=== PATIENT | female | born 1995 | race Caucasian/White ===

== ENCOUNTER 2018-06-20 21:54 | Emergency (ER) | payer OTHER, MEDICAID, SELFPAY ==
[2018-06-20 22:14] VITALS: BP 124/75; PULSE 91; RESP 20; TEMP 36.6; O2SAT 100; BMI 40.6
--- NOTE | 2018-06-20 22:21 | DI.RAD.S_ITS ---
PROCEDURE: XR WRIST LT MIN 3V INDICATIONS: glf, left wrist and forearm pain with numbness in fingers TECHNIQUE: 4 views of the wrist were acquired. COMPARISON: None. FINDINGS: Bones: No fractures or dislocations. No suspicious bony lesions. Scaphoid view: Scaphoid is intact. Soft tissues: No suspicious soft tissue calcifications. IMPRESSION: No fracture. No osseous lesion. If symptoms and/or clinical suspicion for pathology persists, further assessment with repeat radiographs (7-10 days) or advanced imaging (e.g. CT, MRI or bone scan) may be helpful. Dictated by: Cristy Guadalupe MD, PhD on 06/21/2018 at 7:44 Approved by: Cristy Guadalupe MD, PhD on 06/21/2018 at 7:44
--- NOTE | 2018-06-20 22:22 | DI.RAD.S_ITS ---
PROCEDURE: XR FOREARM RT 2V INDICATIONS: glf, left wrist and forearm pain. numbness in fingers. TECHNIQUE: 2 views of the forearm were acquired. COMPARISON: None. FINDINGS: Bones: No fractures or dislocations. No suspicious bony lesions. Soft tissues: No suspicious soft tissue calcifications or masses. IMPRESSION: No fracture. No osseous lesion. If symptoms and/or clinical suspicion for pathology persists, further assessment with repeat radiographs (7-10 days) or advanced imaging (e.g. CT, MRI or bone scan) may be helpful. Dictated by: Cristy Guadalupe MD, PhD on 06/21/2018 at 7:42 Approved by: Cristy Guadalupe MD, PhD on 06/21/2018 at 7:43
[2018-06-20 23:36] VITALS: PULSE 90; RESP 16; TEMP 36.4; O2SAT 99
--- NOTE | 2018-06-21 06:27 | ED.UPPEXIN ---
HPI - Extremity Injury (Upper) General Chief Complaint: Extremity Injury, Upper Stated Complaint: glf, left wrist pain Time Seen by Provider: 06/20/18 22:47 Source: patient and family Mode of arrival: ambulatory Limitations: no limitations History of Present Illness HPI narrative: 23-year-old otherwise healthy former smoker presents with a chief complaint of left wrist pain after she tripped and fell forward onto her outstretched wrist and made an attempt to avoid landing on her infant. She states her hand bent backwards and she now has pain in her wrist. She denies any numbness, tingling or weakness. She denies any elbow or shoulder pain. She states the fall was purely mechanical and was exacerbated by her dog. complaint: injury to: left Onset (ago): minute(s) Other Extremity Injury: Left: wrist Other injuries: none Handedness: right Place: home Severity: mild Relieving factors: immobilization Exacerbating factors: movement of extremity Context: fall and direct blow Associated symptoms: denies other symptoms Related Data Home Medications Medication Instructions Recorded Confirmed levonorgestrel [Mirena] #0 10/30/17 06/11/18 Allergies Allergy/AdvReac Type Severity Reaction Status Date / Time amoxicillin [AMOXICILLIN] Allergy Unknown HIVES/VOMIT Verified 06/20/18 22:20 ING azithromycin [AZITHROMYCIN] Allergy Unknown Verified 06/20/18 22:20 latex [LATEX] Allergy Unknown Verified 06/20/18 22:20 Penicillins [PENICILLINS] Allergy Unknown HIVES Verified 06/20/18 22:20 Review of Systems Review of Systems All systems reviewed & are unremarkable except as noted in HPI and below Constitutional Denies chills, Denies fever(s), Denies lethargy and Denies weakness Eyes Denies change in vision, Denies eye discharge, Denies irritation and Denies loss of vision ENT Ears, Nose, Mouth, and Throat: Denies change in voice, Denies neck pain and Denies sore throat Cardiovascular Denies chest pain, Denies irregular heart rhythm, Denies lightheadedness, Denies palpitations, Denies dyspnea, Denies dyspnea on exertion and Denies orthopnea Respiratory Denies cough, Denies dyspnea, Denies dyspnea on exertion and Denies wheezing Gastrointestinal Gastrointestinal: Denies abdominal pain, Denies change in bowel habits, Denies diarrhea, Denies nausea and Denies vomiting Genitourinary Denies hematuria, Denies flank pain, Denies urinary incontinence and Denies urinary urgency Musculoskeletal Reports limited range of motion and Denies neck pain Integumentary/Breasts Denies pruritus, Denies erythema, Denies rash and Denies wounds Neurologic Denies confusion, Denies loss of vision and Denies weakness Psychiatric Denies anxiety, Denies confusion, Denies depression, Denies homicidal ideation and Denies suicidal ideation Endocrine Denies palpitations Hematologic/Lymphatic Denies easy bruising Allergic/Immunologic Denies wheezing PFSH Medical History Depression (Chronic) Surgical History History of third molar tooth extraction Status post tonsillectomy and adenoidectomy Social History Smoking Status: Former smoker Exam Narrative Exam Narrative: GEN: AOx3 and in mild distress EYES: Pupils are equal, round, and reactive to light and accommodation. Extraoccular muscles are intact bilaterally. There is no subconjunctival hemorrhage or exudate. CHEST: Lungs are clear to auscultation bilaterally and free of wheezes, rales, or rhonchi. Heart rate is regular rhythm, there are no murmurs, clicks, rubs, or gallops. There is no chest wall tenderness. ABD: Abdomen is soft and nontender. There is no guarding or rebound. Bowel sounds are normal in all 4 quadrants. There is no mass or organomegaly. EXT: Patient has full but painful range of motion of the left wrist. There is no numbness, tingling or weakness. No obvious deformity. SKIN: Warm, pink, and dry. No erythema or rash Initial Vital Signs Initial Vital Signs: Vital Signs Temperature 97.9 F 06/20/18 22:14 Pulse Rate 91 H 06/20/18 22:14 Respiratory Rate 20 06/20/18 22:14 Blood Pressure 124/75 06/20/18 22:14 Pulse Oximetry 100 06/20/18 22:14 Procedures Orthopedic Splinting/Casting Injury #1: Side: left Upper Extremity Injury Location: wrist Upper Extremity Immobilizer: wrist splint Course Orders Ordered: ED Orders 06/20/18 22:21 XR wrist LT min 3V Stat 06/20/18 22:22 XR forearm LT 2V Stat Vital Signs - 8 hr 06/20/18 23:36 Temperature 97.6 F Pulse Rate 90 Respiratory Rate 16 Pulse Oximetry 99 MDM - Extremity Injury (Upper) Differential Diagnosis Differential diagnosis: Likely sprain and strain of wrist and fracture of wrist Medical Records Attestation: I reviewed the patient's medical records. Lab Data Attestation: I reviewed the patient's lab results. Discharge Plan Departure Patient Disposition: Home Clinical Impression: Left wrist sprain Discharge Date/Time: 06/20/18 23:37 Interventions: ED Discharge Assessment Last Done: 06/20/18 23:36 Instructions: DI for Wrist Sprain Activity Restrictions/Additional Instructions: *You have been diagnosed with [ left wrist sprain ] *What to do: *Take medications as directed: Tylenol or Motrin for pain *Follow up with your primary care provider in 2-3 days, call for an appointment. Let them know you were seen in the Emergency Department and that we ask that you be seen in follow up *Return to ER if you should have any new, worsening or concerning symptoms Prescriptions: No Action levonorgestrel [Mirena] 1 EACH intrauterine device Qty: 0 RF: 0
== END 2018-06-20 23:37 | disposition home or self-care (01) ==
PROVIDERS: Emergency Provider Emergency Medicine; Family Provider Family Medicine; PCP Family Medicine
DX: S63.502A Unspecified sprain of left wrist, initial encounter (principal); W01.0XXA Fall on same level from slipping, tripping and stumbling without subsequent striking against object, initial encounter
CPT/HCPCS: 29260; 73090; 73110; 99282; 99283

== ENCOUNTER → 2018-08-10 10:36 | Outpatient (CLI) | payer OTHER, MEDICAID, SELFPAY ==
--- NOTE | 2018-08-10 10:41 | DI.US.S_ITS ---
PROCEDURE: US PELVIC COMPLETE INDICATIONS: PAIN; CHECK IUD POSITION TECHNIQUE: Real-time scanning was performed of the pelvic organs, with image documentation. Additional endovaginal scanning was necessary due to incomplete visualization of the adnexal and endometrial structures by transabdominal scanning. COMPARISON: None. FINDINGS: Transabdominal scanning: Limited scanning through the kidneys shows no hydronephrosis. No pathologic free abdominal or pelvic fluid. Endovaginal scanning: Uterus: Uterus is normal in size at 3.0 x 4.9 x 6.4 cm, anteverted. The endometrium measures 3.8 mm in combined thickness. A normally positioned central IUD is seen within the endometrial canal. Ovaries: The right ovary measures 2.4 x 1.7 x 1.6 cm and appears normal as does the left which measures 2.4 x 1.1 x 1.3 cm. IMPRESSION: Endometrial positioning of the IUD is normal. Source of pain is not identified. Normal-appearing ovaries bilaterally. Dictated by: Xavier Peralta M.D. on 08/10/2018 at 13:02 Approved by: Xavier Peralta M.D. on 08/10/2018 at 13:04
== END ==
PROVIDERS: Family Provider Family Medicine; PCP Family Medicine; Visit Provider Registered Nurse
DX: R10.2 Pelvic and perineal pain (principal); Z97.5 Presence of (intrauterine) contraceptive device
CPT/HCPCS: 76830; 76856

== ENCOUNTER 2018-10-05 19:49 | Emergency (ER) | payer OTHER, MEDICAID, SELFPAY ==
[2018-10-05 19:50] VITALS: BP 99/63; PULSE 95; RESP 15; TEMP 37; O2SAT 100; BMI 36.6
--- NOTE | 2018-10-05 20:03 | DI.RAD.S_ITS ---
PROCEDURE: XR ANKLE LT MIN 3V INDICATIONS: left ankle injury TECHNIQUE: 3 views of the ankle were acquired. COMPARISON: None. FINDINGS: Bones: No fractures or dislocations. Ankle mortise is normally aligned. No suspicious bony lesions. Soft tissues: No tibiotalar joint effusion. Achilles tendon appears normal. IMPRESSION: No acute fracture. No osseous lesion. If clinical suspicion and/or symptoms persist, further assessment with repeat plainfilms, or advanced imaging (e.g., CT, MRI, or bone scan) may be helpful for further assessment. Dictated by: Andrea Lugo M.D. on 10/05/2018 at 20:36 Approved by: Andrea Lugo M.D. on 10/05/2018 at 20:36
[2018-10-05 23:20] VITALS: BP 106/60; PULSE 75; RESP 16; O2SAT 100
--- NOTE | 2018-10-06 06:00 | ED.LOWEXIN ---
HPI - Extremity Injury (Lower) General Chief Complaint: Extremity Injury, Lower Stated Complaint: LEFT KNEE ANKLE AND FOOT PAIN FALL Time Seen by Provider: 10/05/18 22:07 Source: patient Mode of arrival: ambulatory Limitations: no limitations History of Present Illness HPI Narrative: 23-year-old female nonsmoker presents with a chief complaint of left foot pain after dropping a TV on her foot earlier today. She then was walking down some stairs and because her foot hurt she ended up tripping and falling but denies any other significant injury as a result of the fall. She has no head the head neck or back pain. She has full recall of the event and denies any loss of consciousness nausea or vomiting. She is not dizzy nor weak or lightheaded. Her pain is worse with motion and improves with rest. She denies any numbness, tingling or weakness MD complaint: foot injury Onset (ago): hour(s) Type of Injury: blunt Place: home Severity: mild Relieving factors: immobilization Exacerbating factors: weight bearing and movement Context: direct blow Other symptoms: none Related Data Home Medications Medication Instructions Recorded Confirmed levonorgestrel [Mirena] #0 10/30/17 06/11/18 Allergies Allergy/AdvReac Type Severity Reaction Status Date / Time amoxicillin [AMOXICILLIN] Allergy Unknown HIVES/VOMIT Verified 10/05/18 19:58 ING azithromycin [AZITHROMYCIN] Allergy Unknown Verified 10/05/18 19:58 latex [LATEX] Allergy Unknown Verified 10/05/18 19:58 Penicillins [PENICILLINS] Allergy Unknown HIVES Verified 10/05/18 19:58 Review of Systems Constitutional Denies chills, Denies fever(s), Denies lethargy and Denies weakness Eyes Denies change in vision, Denies eye discharge, Denies irritation and Denies loss of vision ENT Ears, Nose, Mouth, and Throat: Denies change in voice, Denies neck pain and Denies sore throat Cardiovascular Denies chest pain, Denies irregular heart rhythm, Denies lightheadedness, Denies palpitations, Denies dyspnea, Denies dyspnea on exertion and Denies orthopnea Respiratory Denies cough, Denies dyspnea, Denies dyspnea on exertion and Denies wheezing Gastrointestinal Gastrointestinal: Denies abdominal pain, Denies change in bowel habits, Denies diarrhea, Denies nausea and Denies vomiting Genitourinary Denies hematuria, Denies flank pain, Denies urinary incontinence and Denies urinary urgency Musculoskeletal Denies neck pain Integumentary/Breasts Denies pruritus, Denies erythema, Denies rash and Denies wounds Neurologic Denies confusion, Denies loss of vision and Denies weakness Psychiatric Denies anxiety, Denies confusion, Denies depression, Denies homicidal ideation and Denies suicidal ideation Endocrine Denies palpitations Hematologic/Lymphatic Denies easy bruising Allergic/Immunologic Denies wheezing PFSH Medical History Depression (Chronic) Surgical History History of third molar tooth extraction Status post tonsillectomy and adenoidectomy Social History Smoking Status: Former smoker Social History Smoking Status: Former smoker Exam Narrative Exam Narrative: GEN: AOx3 and in mild distress EYES: Pupils are equal, round, and reactive to light and accommodation. Extraoccular muscles are intact bilaterally. There is no subconjunctival hemorrhage or exudate. CHEST: Lungs are clear to auscultation bilaterally and free of wheezes, rales, or rhonchi. Heart rate is regular rhythm, there are no murmurs, clicks, rubs, or gallops. There is no chest wall tenderness. ABD: Abdomen is soft and nontender. There is no guarding or rebound. Bowel sounds are normal in all 4 quadrants. There is no mass or organomegaly. EXT: Full but painful range of motion of the left foot. She points to the anterior ankle as point of tenderness. Cardiovascular status intact SKIN: Warm, pink, and dry. No erythema or rash Initial Vital Signs Initial Vital Signs: Vital Signs Temperature 98.6 F 10/05/18 19:50 Pulse Rate 95 H 10/05/18 19:50 Respiratory Rate 15 10/05/18 19:50 Blood Pressure 99/63 10/05/18 19:50 Pulse Oximetry 100 10/05/18 19:50 Course Vital Signs - 8 hr 10/05/18 23:20 Pulse Rate 75 Respiratory Rate 16 Blood Pressure 106/60 Pulse Oximetry 100 MDM - Extremity Injury (Lower) Imaging Data Foot Xray: Radiologist's impression: [address] [address] XRay Report Signed Patient: Constanza Tran [facility]#: [id number] : 1995Acct:[id number] Age/Sex: 23 / FDate of Service: 10/05/18 Loc: ED Accession Number: [id number] Procedure: XR ankle LT min 3V Ordering Provider: Harsha Gutierrez D.O. PROCEDURE: XR ANKLE LT MIN 3V INDICATIONS: left ankle injury TECHNIQUE: 3 views of the ankle were acquired. COMPARISON: None. FINDINGS: Bones: No fractures or dislocations. Ankle mortise is normally aligned. No suspicious bony lesions. Soft tissues: No tibiotalar joint effusion. Achilles tendon appears normal. IMPRESSION: No acute fracture. No osseous lesion. If clinical suspicion and/or symptoms persist, further assessment with repeat plainfilms, or advanced imaging (e.g., CT, MRI, or bone scan) may be helpful for further assessment. Dictated by: Andrea Lugo M.D. on 10/05/2018 at 20:36 Approved by: Andrea Lugo M.D. on 10/05/2018 at 20:36 Discharge Plan Departure Patient Disposition: Home Clinical Impression: Sprain of foot, left Qualifiers: Encounter type: initial encounter Qualified Code(s): S93.602A - Unspecified sprain of left foot, initial encounter Discharge Date/Time: 10/05/18 23:22 Interventions: ED Discharge Assessment Last Done: 10/05/18 23:20 Instructions: DI for Foot Sprain Activity Restrictions/Additional Instructions: *You have been diagnosed with [ Left foot sprain ] *What to do: *Take medications as directed *Follow up with your primary care provider in 2-3 days, call for an appointment. Let them know you were seen in the Emergency Department and that we ask that you be seen in follow up *Return to ER if you should have any new, worsening or concerning symptoms, such as [ ] Prescriptions: No Action levonorgestrel [Mirena] 1 EACH intrauterine device Qty: 0 RF: 0 Referrals: Jessica Chris DO [Primary Care Provider] -
--- NOTE | 2018-10-06 06:04 | ED_ITS ---
HPI - Extremity Injury (Lower) General Chief Complaint: Extremity Injury, Lower Stated Complaint: LEFT KNEE ANKLE AND FOOT PAIN FALL Time Seen by Provider: 10/05/18 22:07 Source: patient Mode of arrival: ambulatory Limitations: no limitations History of Present Illness HPI Narrative: 23-year-old female nonsmoker presents with a chief complaint of left foot pain after dropping a TV on her foot earlier today. She then was walking down some stairs and because her foot hurt she ended up tripping and falling but denies any other significant injury as a result of the fall. She has no head the head neck or back pain. She has full recall of the event and denies any loss of consciousness nausea or vomiting. She is not dizzy nor weak or lightheaded. Her pain is worse with motion and improves with rest. She den ies any numbness, tingling or weakness complaint: foot injury Onset (ago): hour(s) Type of Injury: blunt Place: home Severity: mild Relieving factors: immobilization Exacerbating factors: weight bearing and movement Context: direct blow Other symptoms: none Related Data Home Medications Medication Instructions Recorded Confirmed levonorgestrel [Mirena] #0 10/30/17 06/11/18 Allergies Allergy/AdvReac Type Severity Reaction Status Date / Time amoxicillin [AMOXICILLIN] Allergy Unknown HIVES/VOMIT Verified 10/05/18 19:58 ING azithromycin [AZITHROMYCIN] Allergy Unknown Verified 10/05/18 19:58 latex [LATEX] Allergy Unknown Verified 10/05/18 19:58 Penicillins [PENICILLINS] Allergy Unknown HIVES Verified 10/05/18 19:58 Review of Systems Constitutional Denies chills, Denies fever(s), Denies lethargy and Denies weakness Eyes Denies change in vision, Denies eye discharge, Denies irritation and Denies loss of vision ENT Ears, Nose, Mouth, and Throat: Denies change in voice, Denies neck pain and Denies sore throat Cardiovascular Denies chest pain, Denies irregular heart rhythm, Denies lightheadedness, Denies palpitations, Denies dyspnea, Denies dyspnea on exertion and Denies orthopnea Respiratory Denies cough, Denies dyspnea, Denies dyspnea on exertion and Denies wheezing Gastrointestinal Gastrointestinal: Denies abdominal pain, Denies change in bowel habits, Denies diarrhea, Denies nausea and Denies vomiting Genitourinary Denies hematuria, Denies flank pain, Denies urinary incontinence and Denies urinary urgency Musculoskeletal Denies neck pain Integumentary/Breasts Denies pruritus, Denies erythema, Denies rash and Denies wounds Neurologic Denies confusion, Denies loss of vision and Denies weakness Psychiatric Denies anxiety, Denies confusion, Denies depression, Denies homicidal ideation and Denies suicidal ideation Endocrine Denies palpitations Hematologic/Lymphatic Denies easy bruising Allergic/Immunologic Denies wheezing PFSH Medical History Depression (Chronic) Surgical History History of third molar tooth extraction Status post tonsillectomy and adenoidectomy Social History Smoking Status: Former smoker Social History Smoking Status: Former smoker Exam Narrative Exam Narrative: GEN: AOx3 and in mild distress EYES: Pupils are equal, round, and reactive to light and accommodation. Extraoccular muscles are intact bilaterally. There is no subconjunctival hemorrhage or exudate. CHEST: Lungs are clear to auscultation bilaterally and free of wheezes, rales, or rhonchi. Heart rate is regular rhythm, there are no murmurs, clicks, rubs, or gallops. There is no chest wall tenderness. ABD: Abdomen is soft and nontender. There is no guarding or rebound. Bowel sounds are normal in all 4 quadrants. There is no mass or organomegaly. EXT: Full but painful range of motion of the left foot. She points to the anterior ankle as point of tenderness. Cardiovascular status intact SKIN: Warm, pink, and dry. No erythema or rash Initial Vital Signs Initial Vital Signs: Vital Signs Temperature 98.6 F 10/05/18 19:50 Pulse Rate 95 H 10/05/18 19:50 Respiratory Rate 15 10/05/18 19:50 Blood Pressure 99/63 10/05/18 19:50 Pulse Oximetry 100 10/05/18 19:50 Course Vital Signs - 8 hr 10/05/18 23:20 Pulse Rate 75 Respiratory Rate 16 Blood Pressure 106/60 Pulse Oximetry 100 MDM - Extremity Injury (Lower) Imaging Data Foot Xray: Radiologist's impression: [address] [address] XRay Report Signed Patient: Constanza Tran [facility]#: [id number] : 1995Acct:[id number] Age/Sex: 23 / FDate of Service: 10/05/18 Loc: ED Accession Number: [id number] Procedure: XR ankle LT min 3V Ordering Provider: Harsha Gutierrez D.O. PROCEDURE: XR ANKLE LT MIN 3V INDICATIONS: left ankle injury TECHNIQUE: 3 views of the ankle were acquired. COMPARISON: None. FINDINGS: Bones: No fractures or dislocations. Ankle mortise is normally aligned. No suspicious bony lesions. Soft tissues: No tibiotalar joint effusion. Achilles tendon appears normal. IMPRESSION: No acute fracture. No osseous lesion. If clinical suspicion and/or symptoms persist, further assessment with repeat plainfilms, or advanced imaging (e.g., CT, MRI, or bone scan) may be helpful for further assessment. Dictated by: Andrea Lugo M.D. on 10/05/2018 at 20:36 Approved by: Andrea Lugo M.D. on 10/05/2018 at 20:36 Discharge Plan Departure Patient Disposition: Home Clinical Impression: Sprain of foot, left Qualifiers: Encounter type: initial encounter Qualified Code(s): S93.602A - Unspecified sprain of left foot, initial encounter Discharge Date/Time: 10/05/18 23:22 Interventions: ED Discharge Assessment Last Done: 10/05/18 23:20 Instructions: DI for Foot Sprain Activity Restrictions/Additional Instructions: *You have been diagnosed with [ Left foot sprain ] *What to do: *Take medications as directed *Follow up with your primary care provider in 2-3 days, call for an appointment. Let them know you were seen in the Emergency Department and that we ask that you be seen in follow up *Return to ER if you should have any new, worsening or concerning symptoms, such as [ ] Prescriptions: No Action levonorgestrel [Mirena] 1 EACH intrauterine device Qty: 0 RF: 0 Referrals: Jessica Chris DO [Primary Care Provider] -
== END 2018-10-05 23:22 | disposition home or self-care (01) ==
PROVIDERS: Emergency Provider Emergency Medicine; Family Provider Family Medicine; PCP Family Medicine
DX: S93.402A Sprain of unspecified ligament of left ankle, initial encounter (principal)
CPT/HCPCS: 73610; 99282; 99283

== ENCOUNTER → 2018-10-14 16:41 | Outpatient (CLI) | payer OTHER, MEDICAID, SELFPAY ==
[2018-10-14 19:54] LABS: Influenza A and B by PCR Rapid Negative (Negative)
== END ==
PROVIDERS: Family Provider Family Medicine; PCP Family Medicine; Visit Provider Physician Assistant
DX: R68.89 Other general symptoms and signs (principal)
CPT/HCPCS: 87400

== ENCOUNTER 2018-12-11 04:37 | Emergency (ER) | payer OTHER, MEDICAID, SELFPAY ==
[2018-12-11 04:44] VITALS: BP 114/64; PULSE 100; RESP 18; TEMP 36.7; O2SAT 97; BMI 40.7
--- NOTE | 2018-12-11 04:50 | ED_ITS ---
HPI - Extremity Injury (Lower) General Chief Complaint: Extremity Injury, Lower Stated Complaint: knee/foot pain Time Seen by Provider: 12/11/18 04:49 Source: patient Mode of arrival: ambulatory Limitations: no limitations History of Present Illness HPI Narrative: Patient is a 23-year-old female here for evaluation of left foot injury. She states that approximately 30 minutes prior to arrival here in the emergency department she sustained a mechanical fall where she slipped down some stairs. Unsure exactly how she landed however she had left knee and left foot pain. She did not hit her head. No other injuries reported from the event. She states that she was able to ambulate afterwards but with some discomfort in her foot. She states that the knee pain that she had has resolved. Is still having left foot pain. Review of Systems Constitutional Denies frequent falls and Denies headache(s) ENT Ears, Nose, Mouth, and Throat: Denies headache(s) Cardiovascular Denies chest pain and Denies dyspnea Respiratory Denies dyspnea Musculoskeletal Comments: Left foot pain Integumentary/Breasts Denies rash Neurologic Denies frequent falls and Denies headache(s) Hematologic/Lymphatic Denies easy bleeding and Denies easy bruising [facility] Medical History Patient denies medical problems (Acute) Social History lives independently: Yes Social History lives independently: Yes Exam Initial Vital Signs Initial Vital Signs: Vital Signs Temperature 98.0 F 12/11/18 04:44 Pulse Rate 100 H 12/11/18 04:44 Respiratory Rate 18 12/11/18 04:44 Blood Pressure 114/64 12/11/18 04:44 Pulse Oximetry 97 12/11/18 04:44 Const General: cooperative, comfortable, well developed, well groomed and No acute distress Orientation: alert and awake Cardio Pulses: dorsalis pedis present on the left Skin Lesions: no lesions Rashes: no rashes Neuro Cognition: normal cognition Speech: speech normal Sensory Exam: no sensory deficits noted Extrem Other: Patient able to flex and stand at the left knee without any discomfort. Left ankle is unremarkable. Patient does have tenderness to palpation on the top of her left foot. Right foot unremarkable. Psych Appearance: grossly normal and well kempt Course Orders Ordered: ED Orders 12/11/18 04:52 XR foot LT min 3V Stat XR foot RT 2V Stat Vital Signs - 8 hr 12/11/18 04:44 Temperature 98.0 F Pulse Rate 100 H Respiratory Rate 18 Blood Pressure 114/64 Pulse Oximetry 97 MDM - Extremity Injury (Lower) Imaging Data X-ray left foot: Radiologist's impression: Mild dorsal soft tissue swelling. No fracture or misalignment. Specifically, no x-ray evidence of Lisfranc injury X-ray right foot: Radiologist's impression: Unremarkable right foot series MDM Narrative Medical decision making narrative: The right foot x-rays were done for comparison to the left foot. Weightbearing films were done for evaluation of Lisfranc injury. X-rays were negative. Patient is neurovascularly intact. We will hold on a CT scan for now based on the x-ray findings. Informed patient that her symptoms do not improve or worsen she does need to return to the emerge ncy department would recommend a CT scan at that time. Patient was given return precautions and follow-up instructions. She expressed understanding and agreement with plan. Patient denied the need for crutches Discharge Plan Departure Patient Disposition: Home Clinical Impression: Injury of foot, left Qualifiers: Encounter type: initial encounter Qualified Code(s): S99.922A - Unspecified injury of left foot, initial encounter Instructions: How To Perform RICE (Rest, Ice, Compress, Elevate) Activity Restrictions/Additional Instructions: Recommend you keep your foot elevated and iced as much as possible. You can walk on your foot as needed. If your symptoms worsen please return to the emergency department for further evaluation. Contact your primary care doctor for follow-up Referrals: Jessica Chris DO [Primary Care Provider] -
--- NOTE | 2018-12-11 04:52 | DI.RAD.S_ITS ---
PROCEDURE: XR FOOT RT 2V INDICATIONS: Comparison films for left foot injury. TECHNIQUE: 3 weight bearing views of the foot were acquired. COMPARISON: None. FINDINGS: Bones: No displaced fractures or dislocations. No suspicious bony lesions. No widening of the Lisfranc joint/interval is evident. There are no significant degenerative changes. Soft tissues: No tibiotalar joint effusion. The overlying soft tissues are unremarkable. However, there may be mild dorsal soft tissue swelling of the forefoot. IMPRESSION: No acute osseous abnormality of the right foot. Note: The preliminary [facility] report and the final report are concordant. Dictated by: aSm Ellis M.D. on 12/11/2018 at 7:03 Approved by: Sam Ellis M.D. on 12/11/2018 at 7:04
--- NOTE | 2018-12-11 04:52 | DI.RAD.S_ITS ---
PROCEDURE: XR FOOT LT MIN 3V INDICATIONS: Fall with midfoot pain TECHNIQUE: 3 weight bearing views of the foot were acquired. COMPARISON: None. FINDINGS: Bones: No fractures or dislocations. No suspicious bony lesions. There is no widening of the Lisfranc joint/interval. No significant degenerative changes are appreciated. Soft tissues: No tibiotalar joint effusion. Mild soft tissue swelling on the dorsal aspect of the forefoot is present. IMPRESSION: 1. No acute osseous abnormality of the left foot. 2. No widening of the Lisfranc interval to suggest a Lisfranc injury. Note: The preliminary [facility] report and the final report are concordant. Also, the preliminary ED findings and the final radiology report are concordant. Dictated by: Sam Ellis M.D. on 12/11/2018 at 7:01 Approved by: Sam Ellis M.D. on 12/11/2018 at 7:03
[2018-12-11 06:15] VITALS: BP 103/62; PULSE 90; RESP 16; TEMP 36.7; O2SAT 100
== END 2018-12-11 06:20 | disposition home or self-care (01) ==
PROVIDERS: Emergency Provider Emergency Medicine; PCP Family Medicine
DX: S99.922A Unspecified injury of left foot, initial encounter (principal); M25.562 Pain in left knee; W10.8XXA Fall (on) (from) other stairs and steps, initial encounter
CPT/HCPCS: 73620; 73630; 99282; 99283

== ENCOUNTER → 2020-10-26 15:50 | Outpatient (CLI) | payer OTHER, MEDICAID, SELFPAY | PROVIDERS: Family Provider Family Medicine; PCP Family Medicine; Visit Provider Family Medicine | DX: N89.8 Other specified noninflammatory disorders of vagina (principal) | CPT/HCPCS: 87210 ==

== ENCOUNTER 2021-09-22 03:08 | Emergency (ER) | payer OTHER, MEDICAID, SELFPAY ==
--- NOTE | 2021-09-22 03:10 | ED_ITS ---
HPI - Headache General Chief Complaint: Headache Stated Complaint: Headache and back pain x7days Time Seen by Provider: 09/22/21 03:10 History of Present Illness HPI Narrative: 26-year-old female daily smoker presents with various complaints including right upper dental pain with some intraoral swelling. She states that she has had pain when eating and drinking for much of the week and now has a painful lump behind her right ear. She has had a vague headache over much of the week. She denies any specific provocation or palliation such as bright lights or loud noise nor exertion. She denies any neck pain. She has had fever or chills and denies any trauma or injury. SHe also admits to some low back pain over the past few days, suggesting it is acting up because she has been laying around. She denies any injury, bending, lifting or twisting. Also, denies any fever or chil ls nor use of blood thinners. She has no loss of control of bowel or bladder nor lower extremity numbness, tingling or weakness Related Data Previous Rx's Medication Instructions Recorded norgestimate 0.25 mg-ethinyl 1 tab PO DAILY #84 tab 10/26/20 estradiol 35 mcg tablet (Sprintec (28)) metronidazole 250 mg tablet 500 mg PO BID #28 tab 11/26/20 doxycycline hyclate 100 mg capsule 100 mg PO BID #14 cap 11/27/20 clindamycin HCl 300 mg capsule 300 mg PO Q8H 7 Days #21 cap 09/22/21 ketorolac 10 mg tablet 10 mg PO Q6H PRN #14 tab 09/22/21 Allergies Allergy/AdvReac Type Severity Reaction Status Date / Time amoxicillin [AMOXICILLIN] Allergy Unknown HIVES/VOMIT Verified 04/21/19 19:47 ING azithromycin [AZITHROMYCIN] Allergy Unknown Hives and Verified 11/27/20 17:09 vomiting latex [LATEX] Allergy Unknown Verified 04/21/19 19:47 Penicillins [PENICILLINS] Allergy Unknown HIVES Verified 04/21/19 19:47 Review of Systems Review of Systems Narrative: GENERAL: Denies chills, fatigue, malaise, fever, sweats. HEENT: See HPI RESPIRATORY: Denies dyspnea, cough, wheezing, hemoptysis, sputum. CARDIOVASCULAR: Denies chest pain, palpitations, orthopnea, edema, GASTROINTESTINAL: Denies nausea, vomiting, abdominal pain, diarrhea, constipation, melena. : Denies dysuria, frequency, incontinence, hematuria, urinary retention. MUSCULOSKELETAL: denies weakness, joint pain, or bony pain SKIN: Denies rash, skin lesions, or other NEUROLOGIC: See HPI PSYCHIATRIC: No concerning psychosocial issues. 12 point review of systems is negative except for those stated above Patient History Medical History Depression Patient denies medical problems Surgical History History of cholecystectomy History of third molar tooth extraction Status post tonsillectomy and adenoidectomy Social History lives independently: Yes Smoking Status: Current every day smoker alcohol intake: never substance use type: does not use Smoking Status: Former smoker alcohol intake frequency: holidays/special occasions only Substance Use Type: does not use Exam Narrative Exam Narrative: GENERAL: [26] year old patient appears stated age. Well-developed patient, in mild distress. HEAD: Atraumatic. Normocephalic. one solitary post auricular node on Right side. Nontender, freely mobile EYES: Pupils equal round and reactive. Extraocular motions intact. No scleral icterus. No injection or drainage. ENT: Poor dentition throughout with a cracked premolar on the right upper side Nose without bleeding, purulent drainage. Throat without erythema, tonsillar hypertrophy or exudate. Airway patent. NECK: Trachea midline. Non tender CARDIOVASCULAR: Regular rate and rhythm without murmurs, gallops, or rubs. RESPIRATORY: Clear to auscultation. Breath sounds equal bilaterally. No wheezes, rales, or rhonchi. GASTROINTESTINAL: Abdomen soft, non-tender, nondistended. EXTREMITIES: No edema or joint tenderness. BACK: Nontender without deformity or crepitance. No flank tenderness. NEURO: AOx3. SKIN: No rash or erythema of visible areas Initial Vital Signs Initial Vital Signs: Vital Signs Temperature 98.8 F 09/22/21 03:19 Pulse Rate 84 09/22/21 03:19 Respiratory Rate 16 09/22/21 03:19 Blood Pressure 127/67 09/22/21 03:19 Pulse Oximetry 98 09/22/21 03:19 Course Orders Ordered: Discontinued Medications Clindamycin HCl (Clindamycin 150 Mg Capsule) 300 mg PO NOW ONE Stop: 09/22/21 03:48 Last Admin: 09/22/21 03:54 Dose: 300 mg Documented by: JUDE Ketorolac Tromethamine (Ketorolac 30 Mg/Ml Vial) 30 mg IM NOW ONE Stop: 09/22/21 03:48 Last Admin: 09/22/21 03:54 Dose: 30 mg Documented by: JUDE Vital Signs Vital signs: Vital Signs - 8 hr 09/22/21 03:19 Temperature 98.8 F Pulse Rate 84 Respiratory Rate 16 Blood Pressure 127/67 Pulse Oximetry 98 MDM - Headache Lab Data Labs: Urine Dip Bedside Urine Glucose Negative Bedside Urine Bilirubin - Negative Bedside Urine Ketone - Negative Urine Specific [place] 1.015 Bedside Urine Occult Blood - Negative Bedside Urine pH 8 Bedside Urine Protein - Negative Bedside Urine Urobilinogen - Negative Bedside Urine Nitrite - Negative Bedside Urine Leukocytes - Negative Esterase Discharge Plan Departure Patient Disposition: Home Clinical Impression: Pain, dental, Back pain Instructions: DI for Dental Pain Activity Restrictions/Additional Instructions: *You have been diagnosed with [dental pain, likely early infection, headache and back pain. Your history and physical exam are very reassuring and there is no evidence of severe underlying cause of your symptoms *What to do: *Please continue to take your regular medications as directed. [ ] New medication prescriptions sent to your pharmacy: [ ] [ x] New medication written as a paper prescription [ ] No new medications given *Please follow up with your primary care provider in 2-3 days, call for an appointment. Let them know you were seen in the Emergency Department and that we ask that you be seen in follow up. We will electronically transmit a record of today's note if your PCP is in our system *If you do not have a primary care provider please contact the [facility] Resource line at [phone]. They will ask some questions about your medical history and help get you set up with a doctor in the community. *Return to Emergency Department if you should have any new, worsening or concerning symptoms, such as [fever greater than 101 F, shaking chills, worsening pain, persistent vomiting or other bothersome symptoms] Prescriptions: New clindamycin HCl 300 mg capsule 300 mg PO Q8H 7 Days Qty: 21 0RF ketorolac 10 mg tablet 10 mg PO Q6H PRN (Reason: pain) Qty: 14 0RF No Action norgestimate-ethinyl estradiol [Sprintec (28)] 0.25-35 mg-mcg tablet 1 tab PO DAILY Qty: 84 3RF metronidazole 250 mg tablet 500 mg PO BID Qty: 28 0RF doxycycline hyclate 100 mg capsule 100 mg PO BID Qty: 14 0RF Referrals: Jessica Chris DO [Primary Care Provider] -
[2021-09-22 03:19] VITALS: BP 127/67; PULSE 84; RESP 16; TEMP 37.1; O2SAT 98; BMI 42.0
[2021-09-22] MEDS: KETOROLAC 30 MG/ML VIAL IM (03:54)
[2021-09-22] MEDS: CLINDAMYCIN 150 MG CAPSULE 300 MG PO (03:54)
== END 2021-09-22 04:36 | disposition home or self-care (01) ==
PROVIDERS: Emergency Provider Emergency Medicine; Family Provider Family Medicine; PCP Family Medicine
DX: K08.89 Other specified disorders of teeth and supporting structures (principal); M54.50 Low back pain, unspecified; R51.9 Headache, unspecified
CPT/HCPCS: 81003; 96372; 99283; J1885

== ENCOUNTER 2021-12-02 16:33 | Emergency (ER) | payer OTHER, MEDICAID, SELFPAY ==
[2021-12-02 16:39] VITALS: BP 112/76; PULSE 96; RESP 18; TEMP 36.5; O2SAT 100; BMI 44.8
--- NOTE | 2021-12-02 19:03 | DI.RAD.S_ITS ---
PROCEDURE: XR KNEE LT 3V INDICATIONS: knee pain after fall down stairs TECHNIQUE: 3 views of the knee were acquired. COMPARISON: None. FINDINGS: Bones: No fractures or dislocations. No suspicious bony lesions. Soft tissues: No joint effusion. No suspicious soft tissue calcifications. IMPRESSION: No acute finding. Dictated by: Kyler Ring M.D. on 12/02/2021 at 19:49 Approved by: Kyler Ring M.D. on 12/02/2021 at 19:49
--- NOTE | 2021-12-02 19:03 | DI.RAD.S_ITS ---
PROCEDURE: XR FOOT LT MIN 3V INDICATIONS: fall, foot pain TECHNIQUE: 3 views of the foot were acquired. COMPARISON: [facility], , FOOT 3V LEFT, 08/12/2011, 14:18. FINDINGS: Bones: No fractures or dislocations. No suspicious bony lesions. Soft tissues: No tibiotalar joint effusion. Achilles tendon appears normal. IMPRESSION: No acute finding. Dictated by: Kyler Ring M.D. on 12/02/2021 at 19:49 Approved by: Kyler Ring M.D. on 12/02/2021 at 19:50
--- NOTE | 2021-12-02 19:04 | ED_ITS ---
HPI - Extremity Injury (Lower) General Chief Complaint: Extremity Injury, Lower Stated Complaint: Fall/Left Foot Injury Time Seen by Provider: 12/02/21 18:55 Source: patient Mode of arrival: Wheelchair History of Present Illness HPI Narrative: 26-year-old woman who states she is 4 weeks has not yet seen a doctor but describes her last menstrual period sometime at the end of September which would suggest 6-8 weeks. She fell down to concrete stairs landing on both knees and the top of her left foot and avulsed her left 2nd toenail. She is tender and slightly swollen over the dorsum of the foot and around the knee with no specif ic identifiable injury or specific pain site Related Data Previous Rx's Medication Instructions Recorded norgestimate 0.25 mg-ethinyl 1 tab PO DAILY #84 tab 10/26/20 estradiol 35 mcg tablet (Sprintec (28)) metronidazole 250 mg tablet 500 mg PO BID #28 tab 11/26/20 doxycycline hyclate 100 mg capsule 100 mg PO BID #14 cap 11/27/20 ketorolac 10 mg tablet 10 mg PO Q6H PRN #14 tab 09/22/21 Allergies Allergy/AdvReac Type Severity Reaction Status Date / Time amoxicillin [AMOXICILLIN] Allergy Unknown HIVES/VOMIT Verified 12/02/21 16:39 ING azithromycin [AZITHROMYCIN] Allergy Unknown Hives and Verified 12/02/21 16:39 vomiting latex [LATEX] Allergy Unknown Verified 12/02/21 16:39 Penicillins [PENICILLINS] Allergy Unknown HIVES Verified 12/02/21 16:39 Review of Systems Review of Systems Narrative: Remainder of review of systems is otherwise unremarkable for Constitutional: Fevers, chills, weakness ENT: No sore throat, neck pain, ear pain CV: Chest pain, palpitations, Respiratory: Cough, wheeze, dyspnea GI: vomiting, diarrhea, : Dysuria, hematuria, Patient History Medical History Depression Patient denies medical problems Surgical History History of cholecystectomy History of third molar tooth extraction Status post tonsillectomy and adenoidectomy Social History lives independently: Yes Smoking Status: Current every day smoker alcohol intake: never substance use type: does not use Smoking Status: Current every day smoker tobacco type: vaping alcohol intake frequency: holidays/special occasions only Substance Use Type: does not use Exam Initial Vital Signs Initial Vital Signs: Vital Signs Temperature 97.7 F 12/02/21 16:39 Pulse Rate 96 H 12/02/21 16:39 Respiratory Rate 18 12/02/21 16:39 Blood Pressure 112/76 12/02/21 16:39 Pulse Oximetry 100 12/02/21 16:39 General: Alert appropriate, dramatic affect of response to history and physical exam Respiratory: Able to speak in full sentences, no obvious respiratory distress Skin: No obvious rashes, minor abrasion to the right knee, no contusion to the left knee. Avulsed left 2nd toenail with no other injury obviously appreciated Extremity: Exam is limited by her response to perceived dramatic pain throughout the entire left lower extremity. She states she is tender through the entire thigh knee calf foot and ankle. Objectively she has some minor swelling over the dorsum of the foot no bruising or contusion. She was able to walk with full weight-bearing on the left side Neurologic: Grossly intact no obvious asymmetries or abnormalities Psych: Very anxious Course Orders Ordered: ED Orders 12/02/21 19:03 XR foot LT min 3V Stat XR knee LT 3V Stat Vital Signs Vital signs: Vital Signs - 8 hr 12/02/21 16:39 Temperature 97.7 F Pulse Rate 96 H Respiratory Rate 18 Blood Pressure 112/76 Pulse Oximetry 100 MDM - Extremity Injury (Lower) Imaging Data Foot XR: Radiologist's Impression: FINDINGS:? ? Bones:? No fractures or dislocations.? No suspicious bony lesions.? ? Soft tissues:? No joint effusion.? No suspicious soft tissue calcifications.? ? ? IMPRESSION:? No acute finding. ? ? Dictated by: Kyler Ring M.D. on 12/02/2021 at 19:49? knee xray: Radiologist's Impression: FINDINGS:? ? Bones:? No fractures or dislocations.? No suspicious bony lesions.? ? Soft tissues:? No joint effusion.? No suspicious soft tissue calcifications.? ? ? IMPRESSION:? No acute finding. ? ? Dictated by: Kyler Ring M.D. on 12/02/2021 at 19:49? ?? MDM Narrative Medical decision making narrative: 26-year-old woman with a mechanical fall down to cement steps abrasion to the right knee contusion to the left knee avulsion of the left 2nd toenail without any underlying bony abnormality. Description of the fall is entirely consistent with her exam. At this point I do not suspect domestic violence or alternative reasons for her tumble. She was concerned about her . Unfortunately of body habitus makes transabdominal scanning challenging. I can see some cardiac activity but not much beyond that. She will follow-up with her primary care doctor for routine OB care. At this point she is safe for home discharge Discharge Plan Departure Patient Disposition: Home Clinical Impression: Early stage of Fall down stairs Qualifiers: Encounter type: initial encounter Qualified Code(s): W10.8XXA - Fall (on) (from) other stairs and steps, initial encounter Avulsion of toenail Qualifiers: Encounter type: initial encounter Qualified Code(s): S91.209A - Unspecified open wound of unspecified toe(s) with damage to nail, initial encounter Foot sprain Qualifiers: Encounter type: initial encounter Laterality: left Qualified Code(s): S93.602A - Unspecified sprain of left foot, initial encounter Instructions: DI for Nail Avulsion Injury, DI for Foot Pain Activity Restrictions/Additional Instructions: Thank you for coming in today You do not have any bony injury to your knee your ankle or your foot. It does look like the toenail of your 2nd toe got pulled off. Please clean this when you get home. Keep a Band-Aid over the area as long as it is tender. It should heal nicely. You can use Tylenol for pain control if needed I spoke probably help as well Unfortunately I was not able to get great views of your uterus in the ultrasound. I was able to see intrauterine heart activity suggesting your at least 6 weeks and the is in the right spot. Please follow-up with your OB provider. Beginning vitamins would also be recommended. I wish you the best Prescriptions: No Action norgestimate-ethinyl estradiol [Sprintec (28)] 0.25-35 mg-mcg tablet 1 tab PO DAILY Qty: 84 3RF metronidazole 250 mg tablet 500 mg PO BID Qty: 28 0RF doxycycline hyclate 100 mg capsule 100 mg PO BID Qty: 14 0RF ketorolac 10 mg tablet 10 mg PO Q6H PRN (Reason: pain) Qty: 14 0RF Referrals: Jessica Chris DO [Primary Care Provider] -
== END 2021-12-02 20:39 | disposition home or self-care (01) ==
PROVIDERS: Emergency Provider Emergency Medicine; Family Provider Family Medicine; PCP Family Medicine
DX: S91.209A Unspecified open wound of unspecified toe(s) with damage to nail, initial encounter (principal); S93.602A Unspecified sprain of left foot, initial encounter; W10.8XXA Fall (on) (from) other stairs and steps, initial encounter; Z3A.01 Less than 8 weeks gestation of pregnancy
CPT/HCPCS: 73562; 73630; 99283

== ENCOUNTER → 2021-12-31 12:08 | Outpatient (CLI) | payer OTHER, MEDICAID, SELFPAY ==
[2021-12-31 13:12] LABS: Appearance Urine UA CLOUDY; Bilirubin Urine UA NEGATIVE (NEGATIVE); Color Urine UA YELLOW; Glucose Urine UA NEGATIVE (Negative); Ketones Urine UA TRACE (NEGATIVE); Leukocyte Esterase Urine UA 1+ (NEGATIVE); Nitrite Urine UA NEGATIVE (Negative); Occult Blood Urine UA NEGATIVE (Negative); Protein Urine UA TRACE (Negative); Specific Gravity Urine UA 1.025 (1.000-1.035)
[2021-12-31 13:40] LABS: Bacteria Urine Few (2-10); Culture Indicated Urine Cult Not Indicated; RBC Urine None Seen (0-5/HPF); Squamous Epithelial Cell Urine 10-30 /HPF (0-5/HPF); WBC Urine 1-5/HPF (0-5/HPF)
[2021-12-31 14:33] LABS: Add Manual Diff / Slide Review NO; Basophils Absolute Auto 0 /uL (0-100); Basophils Percent Auto 0.4 % (0-2); Eosinophils Absolute Auto 300 /uL (0-450); Eosinophils Percent Auto 3.6 % (2-4); Hematocrit 37.1 % (36-46); Hemoglobin 12.8 g/dL (12.0-16.0); Lymphocytes Absolute Auto 2100 /uL (1100-4500); Lymphocytes Percent Auto 30.3 % (25-40); Mean Corpuscular HGB Conc 34.6 % (30-36); Mean Corpuscular Hemoglobin 31.4 PG (26-34); Mean Corpuscular Volume 90.8 fL (80-100); Monocytes Absolute Auto 400 /uL (0-900); Monocytes Percent Auto 5.2 % (3-14); Neutrophils Absolute Auto 4200 /uL (1500-7000); Neutrophils Percent Auto 60.5 % (50-75); Platelet Count 309 X10^3/uL (150-400); Red Blood Cell Count 4.08 X10^6/uL (4.0-5.2); White Blood Cell Count 6.9 X10^3/uL (4.5-11.0)
[2022-01-01 09:46] LABS: RPR Screen Non Reactive (Non Reactive)
[2022-01-01 10:17] LABS: Varicella IgG Antibody 3503 index (Immune >165)
[2022-01-02 15:47] LABS: Hepatitis B Surface Antigen NEGATIVE s/c (NEGATIVE); Rubella Antibody IgG 9.2 IU/mL (>15)
[2022-01-02 16:03] LABS: HIV 1 & 2 Ab/Ag 4th Gen Combo NEGATIVE (NEGATIVE); Hep C Virus Ab w/Reflex Quant NEGATIVE s/c (NEGATIVE)
== END ==
PROVIDERS: Family Provider Family Medicine; PCP Family Medicine; Referring Provider Obstetrics & Gynecology; Visit Provider Obstetrics & Gynecology
DX: Z34.81 Encounter for supervision of other normal pregnancy, first trimester (principal)
CPT/HCPCS: 36415; 80055; 81003; 81015; 86787; 86803; 86850; 86900; 86901; 87086; 87389

== ENCOUNTER → 2022-01-21 11:52 | Outpatient (CLI) | payer OTHER, MEDICAID, SELFPAY ==
--- NOTE | 2022-01-21 11:52 | DI.US.S_ITS ---
PROCEDURE: US OB <= 14 WEEKS FETUS INDICATIONS: Dates OUTSIDE/PRIOR DATING DATA: Last menstrual period (LMP): 10/11/2021. LMP-based estimated date of delivery (DIYA): 07/18/2022. First dating scan (date and location): 01/21/2022. Estimated date of delivery (DIYA) from first dating scan: 07/26/2022. The calculations are made using the ultrasound DIYA of 07/26/2022. TECHNIQUE: Real-time scanning was performed of the fetus and maternal pelvic organs, with image documentation. Endovaginal scanning was also performed to better visualize the fetus and maternal ovaries. COMPARISON: None. FINDINGS: Biparietal diameter 2.2 centimeters. Head circumference 8.4 centimeters. Abdominal circumference 6.5 centimeters. Femur length of 1.0 centimeters. heart rate 165 beats per minute. Cervical length 3.1 centimeters. STEVEN 9.5 centimeters. presentation is vertex. Placenta is anterior. IMPRESSION: Single live intrauterine gestation with estimated gestational age 13 weeks 3 days. We strive to produce accurate, complete, and clear reports of imaging services. To assist us in improving patient care, this report was composed using standard report templates and voice recognition software. Therefore, it may contain abnormal punctuation, insertions and/or omissions. Occasional wrong-word or sound-alike substitutions may occur. Though we review the report and make efforts to correct it, we do recommend that the report be read carefully in proper context to recognize any text inaccuracies. Dictated by: Kyler Ring M.D. on 01/21/2022 at 13:49 Approved by: Kyler Ring M.D. on 01/21/2022 at 13:57
== END ==
PROVIDERS: Family Provider Family Medicine; PCP Family Medicine; Referring Provider Obstetrics & Gynecology; Visit Provider Obstetrics & Gynecology
DX: Z34.81 Encounter for supervision of other normal pregnancy, first trimester (principal); Z3A.13 13 weeks gestation of pregnancy
CPT/HCPCS: 76801; 76817

== ENCOUNTER → 2022-01-29 11:54 | Outpatient (CLI) | payer OTHER, MEDICAID, SELFPAY ==
[2022-01-29 13:29] LABS: Thyroid Stimulating Hormone 3.63 uIU/mL (0.47-4.68)
[2022-01-29 14:42] LABS: Free T4, Direct Thyroxine 0.87 ng/dL (0.78-2.19)
[2022-02-01 11:36] LABS: Thyroid Stimulating Immunoglob < 0.10 IU/L (0.00-0.55)
== END ==
PROVIDERS: Family Provider Family Medicine; PCP Family Medicine; Referring Provider Obstetrics & Gynecology; Visit Provider Obstetrics & Gynecology
DX: R63.4 Abnormal weight loss (principal); E05.90 Thyrotoxicosis, unspecified without thyrotoxic crisis or storm
CPT/HCPCS: 36415; 84436; 84439; 84443; 84445

== ENCOUNTER → 2022-02-16 13:56 | Outpatient (CLI) | payer OTHER, MEDICAID, SELFPAY ==
[2022-02-17 08:44] LABS: Urine N gonorrhoeae NOT DETECTED
[2022-02-17 08:49] LABS: Urine Chlamydia NOT DETECTED
== END ==
PROVIDERS: Family Provider Family Medicine; PCP Family Medicine; Visit Provider Physician Assistant
DX: N89.8 Other specified noninflammatory disorders of vagina (principal); Z13.9 Encounter for screening, unspecified
CPT/HCPCS: 87210; 87491; 87591

== ENCOUNTER → 2022-02-26 14:56 | Outpatient (CLI) | payer OTHER, MEDICAID, SELFPAY ==
[2022-02-26 16:28] LABS: Thyroid Stimulating Hormone 2.47 uIU/mL (0.47-4.68)
[2022-02-28 20:38] LABS: AFP, Serum 55.6 ng/mL (.); Inhibin A, Dimeric 153.68 pg/mL (.); Inhibin A, MoM 1.15 (.); Maternal Ethnicity Caucasian (.); Maternal Weight 207 lbs (.); Number of Fetuses No (.); OSBR Risk 1 IN 4664 (.); Results Report (.); Test Results *Screen Negative* (.); hCG, MoM 1.17 (.); hCG, Serum 26182 mIU/mL (.)
== END ==
PROVIDERS: Family Provider Family Medicine; PCP Family Medicine; Referring Provider Obstetrics & Gynecology; Visit Provider Obstetrics & Gynecology
DX: Z34.82 Encounter for supervision of other normal pregnancy, second trimester (principal); Z3A.18 18 weeks gestation of pregnancy
CPT/HCPCS: 36415; 82105; 82677; 84436; 84443; 84702; 86336

== ENCOUNTER → 2022-03-10 10:36 | Outpatient (CLI) | payer OTHER, MEDICAID, SELFPAY ==
--- NOTE | 2022-03-10 10:37 | DI.US.S_ITS ---
PROCEDURE: US OB >= 14 WEEKS FETUS INDICATIONS: ANATOMY OUTSIDE/PRIOR DATING DATA: Last menstrual period (LMP): 10/11/2021 LMP-based estimated date of delivery (DIYA): 07/18/2022 First dating scan (date and location): 01/21/2022 at [facility] Estimated date of delivery (DIYA) from first dating scan: 07/26/2022 The calculations are made using the ultrasound DIYA of 07/26/2022 TECHNIQUE: Real-time scanning was performed of the fetus, with image documentation and biometric measurements. Endovaginal scanning: Not performed COMPARISON: [facility], , OB <= 14 WEEKS FETUS, 01/21/2022, 12:37. FINDINGS: General: A single living intrauterine gestation is present. Presentation: Vertex Placenta: Placental position is anterior, without previa. Amniotic fluid index: 14.5 cm, normal range is 5-24 cm. Single deepest vertical pocket is 4.1 cm. heart rate: 149 beats per minute. Maternal cervical canal: 3.7 cm long. Normal lower limit is 2.5 cm. biometrics: Biparietal diameter: 4.5 cm, 19 weeks 5 days Head circumference: 16.8 cm, 19 weeks 3 days Abdominal circumference: 14.0 cm, 19 weeks 2 days Femur length: 3.1 cm, 19 weeks 5 days Clinically estimated gestational age: 20 weeks 2 days Composite gestational age from present scan: 19 weeks 4 days Estimated weight and percentile: 296 g, 11th percentile Anatomic survey: Neuro: Ventricles are non-dilated at less than 10 mm. Cisterna magna is normal at 3-11 mm. Cerebellum is normal in size and morphology. Nuchal skin fold: Normal at less than 6 mm between 14-21 weeks gestational age. Face: Nose and lips, facial profile are not well seen. Spine: No evidence for spina bifida. Heart: 4 heart and ventricular outflow tracts are not well seen. Diaphragm: Diaphragm is intact. Stomach: Left-sided stomach is present. Kidneys: No hydronephrosis. Normal is less than 5 mm in 2nd trimester, less than 7 mm in 3rd trimester. Cord: 3-vessel cord has orthotopic insertion. Bladder: Normal in size. Extremities: All 4 extremities identified. IMPRESSION: 1. Single live intrauterine . 2. facial profile, nose/lips, 4-chamber heart, and ventricular outflow tracts are not well visualized. Recommend follow up exam. 3. Otherwise normal anatomic survey. We strive to produce accurate, complete, and clear reports of imaging services. To assist us in improving patient care, this report was composed using standard report templates and voice recognition software. Therefore, it may contain abnormal punctuation, insertions and/or omissions. Occasional wrong-word or sound-alike substitutions may occur. Though we review the report and make efforts to correct it, we do recommend that the report be read carefully in proper context to recognize any text inaccuracies. Dictated by: Rob Olivera M.D. on 03/10/2022 at 14:05 Approved by: Rob Olivera M.D. on 03/10/2022 at 14:14
== END ==
PROVIDERS: Family Provider Family Medicine; PCP Family Medicine; Referring Provider Obstetrics & Gynecology; Visit Provider Obstetrics & Gynecology
DX: Z34.82 Encounter for supervision of other normal pregnancy, second trimester (principal); Z3A.19 19 weeks gestation of pregnancy
CPT/HCPCS: 76811

== ENCOUNTER → 2022-04-23 15:03 | Outpatient (CLI) | payer OTHER, MEDICAID, SELFPAY ==
[2022-04-23 17:15] LABS: Hematocrit 33.5 % (36-46); Hemoglobin 11.8 g/dL (12.0-16.0)
[2022-04-23 17:18] LABS: GTT (PREG) 1 Hour PP 50gm Dose 99 mg/dL (76-139)
== END ==
PROVIDERS: Family Provider Family Medicine; PCP Family Medicine; Referring Provider Obstetrics & Gynecology; Visit Provider Obstetrics & Gynecology
DX: Z34.82 Encounter for supervision of other normal pregnancy, second trimester (principal); Z3A.26 26 weeks gestation of pregnancy
CPT/HCPCS: 36415; 82950; 85014; 85018

== ENCOUNTER → 2022-06-24 11:08 | Outpatient (CLI) | payer OTHER, MEDICAID, SELFPAY ==
[2022-06-24 15:01] LABS: Urine N gonorrhoeae NOT DETECTED
[2022-06-24 15:02] LABS: Urine Chlamydia NOT DETECTED
[2022-06-25 13:42] LABS: Strep Grp B PCR POS for Grp B Strep
== END ==
PROVIDERS: Family Provider Family Medicine; PCP Family Medicine; Visit Provider Obstetrics & Gynecology
DX: Z34.83 Encounter for supervision of other normal pregnancy, third trimester (principal); Z11.3 Encounter for screening for infections with a predominantly sexual mode of transmission; Z3A.35 35 weeks gestation of pregnancy
CPT/HCPCS: 87186; 87491; 87591; 87653

== ENCOUNTER 2022-07-03 11:32 | Observation (INO) | payer OTHER, MEDICAID, SELFPAY ==
[2022-07-03 12:58] LABS: Appearance Urine UA CLEAR; Bilirubin Urine UA NEGATIVE (NEGATIVE); Color Urine UA ORANGE; Glucose Urine UA NEGATIVE (Negative); Ketones Urine UA 2+ (NEGATIVE); Leukocyte Esterase Urine UA TRACE (NEGATIVE); Nitrite Urine UA NEGATIVE (Negative); Occult Blood Urine UA NEGATIVE (Negative); Protein Urine UA 1+ (Negative); Urobilinogen Urine UA 0.2 E.U./dL (0.2)
[2022-07-03 13:01] LABS: Bacteria Urine None Seen; Culture Indicated Urine Specimen Cultured; RBC Urine None Seen (0-5/HPF); Squamous Epithelial Cell Urine 5-10 /HPF (0-5/HPF); WBC Urine 0-1/HPF (0-5/HPF)
--- NOTE | 2022-07-03 13:35 | P.TNLD_ITS ---
Visit Information Visit Information Date of evaluation: 07/03/22 Primary OB Provider: Og Moore On-call OB Provider: Og Moore Comments/Additional reasons for admission: Constanza is a presenting to the [facility] for evaluation due to what she describes as a gush of stuff PV @ 10:00 this AM followed by intermittent sharp suprapubic pains. Her baby is active and she denies bleeding. PFSH Medical History Chlamydia Depression Patient denies medical problems Positive GBS test Surgical History History of cholecystectomy History of third molar tooth extraction History of tooth extraction Status post tonsillectomy and adenoidectomy Family History Mother Diabetes mellitus Heart disease Myocardial infarction Pacemaker Family/Other Hypothyroid Gout Grandmother Diabetes mellitus Grandmother Seizure disorder Dementia Grandfather Heart disease Grandmother Diabetes mellitus Grandfather Hypertension Hypothyroid Social History marital status: unmarried,living together number of children: 1 household members: significant other, family (parents and grandmother) and children lives independently: Yes housing: house pets and animals: No education level: high school occupational status: unemployed current occupational exposures/hazards: No special anushka needs: No seatbelt use: always water heater temp set < 120 deg: Yes working smoke detector in home: Yes fire extinguisher in home: Yes carbon monox detector in home: Yes firearms in home: Yes firearms unloaded and locked: Yes do you feel safe at home: Yes Smoking Status: Former smoker Tobacco: How many years used: 1 second hand exposure: Yes (s/o vapes, but only outside) alcohol intake: former substance use type: does not use during the past year weight has: remained stable well-balanced diet: daily or most days daily servings fruits/ve-4 caffeine: Yes (Occasionally, aware of 200mg limit) Type(s) of exercise: walking Objective Labs Labs: Laboratory Results - last 24 hr 07/03/22 12:15 Urine Color [place] Urine Appearance Clear Urine pH 6.0 Ur Specific [place] 1.020 Urine Protein 1+ H Urine Glucose (UA) Negative Urine Ketones 2+ H Urine Occult Blood Negative Urine Nitrate Negative Urine Bilirubin Negative Urine Urobilinogen 0.2 Ur Leukocyte Esterase Trace H Urine RBC None seen Urine WBC 0-1/hpf Ur Squamous Epith Cells 5-10 /hpf H Urine Bacteria None seen Ur Culture Indicated? Specimen cultured Evaluation Evaluation Baseline heart rate: 145 Variability: Moderate (11-25) monitor accelerations: Present Monitor Decelerations: Absent Contraction Frequency (minutes): 6 Uterine Contraction Intensity: Mild Category of Tracing: Reactive Status: Category l Cervical dilation (cm): 2 Cervical effacement (%): 75 station: -2 Non-invasive Membranes Rupture Test: negative Diagnosis, Plan/Disposition Final Diagnosis (1) GBS (group B Streptococcus carrier), +RV culture, currently : Status: Acute (2) : Status: Acute Plan/Disposition Plan: Labor precautions. RTC PRN. OB Disposition: home
== END 2022-07-03 13:40 | disposition home or self-care (01) ==
PROVIDERS: Admitting Provider Obstetrics & Gynecology; Family Provider Family Medicine; PCP Family Medicine; Referring Provider Obstetrics & Gynecology; Visit Provider Obstetrics & Gynecology
DX: Z03.71 Encounter for suspected problem with amniotic cavity and membrane ruled out (principal); Z3A.37 37 weeks gestation of pregnancy
CPT/HCPCS: 59025; 59050; 81001; 84112; 87086; G0378; G0379

== ENCOUNTER 2022-07-03 18:20 | Observation (INO) | payer OTHER, MEDICAID, SELFPAY ==
[2022-07-03] MEDS: LACTATED RINGERS 1,000 ML 100 ML IV (19:00)
[2022-07-03] MEDS: CEFAZOLIN 2 GM/100 ML PREMIX 100 ML IV (19:00)
[2022-07-03 19:09] LABS: Add Manual Diff / Slide Review NO; Basophils Absolute Auto 100 /uL (0-100); Basophils Percent Auto 0.5 % (0-2); Eosinophils Absolute Auto 100 /uL (0-450); Eosinophils Percent Auto 0.5 % (2-4); Lymphocytes Absolute Auto 1500 /uL (1100-4500); Lymphocytes Percent Auto 12.7 % (25-40); Mean Corpuscular HGB Conc 34.1 % (30-36); Mean Corpuscular Hemoglobin 31.6 PG (26-34); Mean Corpuscular Volume 92.6 fL (80-100); Monocytes Absolute Auto 700 /uL (0-900); Monocytes Percent Auto 6.1 % (3-14); Neutrophils Absolute Auto 9500 /uL (1500-7000); Neutrophils Percent Auto 80.2 % (50-75); Platelet Count 298 X10^3/uL (150-400); Red Blood Cell Count 1.77 X10^6/uL (4.0-5.2); Red Cell Distribution Width 14.4 % (11.6-14.8); White Blood Cell Count 11.9 X10^3/uL (4.5-11.0)
[2022-07-03 19:11] LABS: Hematocrit 16.4 % (36-46); Hemoglobin 5.6 g/dL (12.0-16.0)
--- NOTE | 2022-07-03 19:15 | PM.OBHP.1 ---
OB HPI Date/Time Date of admission: 07/03/22 Date Patient Seen: 07/03/22 Time Patient Seen: 19:17 History of Present Condition Chief complaint: Labor : 5 Para: 1 Estimated Date of Delivery: 07/24/22 Estimated Gestational Age (weeks): 37+0 Narrative: Constanza Tran is a 27 year old presenting with RUC and significant cervical change now at 37+0 weeks EGA. GBS is positive. She was seen earlier today with ? SROM but AmniSure was negative. Since then despite BR and fluids she's started having RUC and they are becoming more frequent/intense. Hyperthyroidism was suspected early in the but ruled out and growth restriction, also suspected, was also excluded. History of Present Dating criteria: LMP confirmed by 1st trimester US Ultrasounds: normal 1st trimester US and normal mid trimester US Obstetrical complications: none Preadmission Labs Blood type: A (+) positive -: Antibody screen: negative, GBS status: positive, HBsAG: negative, HIV: negative and RPR/VDLR: negative -: Chlamydia screen: not detected and Gonorrhea screen: not detected -: Rubella: not immune and Varicella: immune HCT: 33.5 HCAB: negative PAP: Normal Quad screen: Normal 1 hr GTT: 99 Prior (ies) History: x 1 Evaluation Evaluation Baseline heart rate: 150 Variability: Moderate (11-25) monitor accelerations: Present Monitor Decelerations: Absent Uterine Contraction Intensity: Mild Category of Tracing: Reactive Status: Category l Dilation (cm): 5 Effacement (%): 90 Dilation: >/=5 cm Effacement: >/=80% station: -1 Position of cervix: mid Consistency: medium Zaldivar score: 10 PFSH Medical History Chlamydia Depression Patient denies medical problems Positive GBS test Surgical History History of cholecystectomy History of third molar tooth extraction History of tooth extraction Status post tonsillectomy and adenoidectomy Family History Mother Diabetes mellitus Heart disease Myocardial infarction Pacemaker Family/Other Hypothyroid Gout Grandmother Diabetes mellitus Grandmother Seizure disorder Dementia Grandfather Heart disease Grandmother Diabetes mellitus Grandfather Hypertension Hypothyroid Social History marital status: unmarried,living together number of children: 1 household members: significant other, family (parents and grandmother) and children lives independently: Yes housing: house pets and animals: No education level: high school occupational status: unemployed current occupational exposures/hazards: No special anushka needs: No seatbelt use: always water heater temp set < 120 deg: Yes working smoke detector in home: Yes fire extinguisher in home: Yes carbon monox detector in home: Yes firearms in home: Yes firearms unloaded and locked: Yes do you feel safe at home: Yes Smoking Status: Former smoker (Quit when she learned she was ) Tobacco: How many years used: 1 second hand exposure: Yes (s/o vapes, but only outside) alcohol intake: former substance use type: does not use during the past year weight has: remained stable well-balanced diet: daily or most days daily servings fruits/ve-4 caffeine: Yes (Occasionally, aware of 200mg limit) Type(s) of exercise: walking Meds Home Medications and Allergies Home Medications Medication Instructions Recorded Confirmed Type prenat.vits,noy,aza-srxy-gxwnu 1 tab PO DAILY 12/27/21 06/24/22 History metronidazole 0.75 % (37.5 mg/5 1 appful vaginal BEDTIME 5 days 06/24/22 06/24/22 Rx gram) vaginal gel #70 grams Allergies Allergy/AdvReac Type Severity Reaction Status Date / Time amoxicillin [AMOXICILLIN] Allergy Unknown HIVES/VOMIT Verified 06/24/22 10:21 ING azithromycin [AZITHROMYCIN] Allergy Unknown Hives and Verified 06/24/22 10:21 vomiting latex [LATEX] Allergy Unknown Verified 06/24/22 10:21 Penicillins [PENICILLINS] Allergy Unknown HIVES Verified 06/24/22 10:21 Review of Systems Review of Systems Narrative: Problem-specific ROS positives included in HPI OB Exam HENMT Head: normal to inspection, normocephalic and atraumatic Eyes General: appearance normal, both eyes and all related structures Resp Effort & Inspection: normal respiratory effort and able to speak in complete sentences Auscultation: clear to auscultation bilaterally Cardio Rate: regular rate Rhythm: regular rhythm Heart Sounds: S1 normal, S2 normal and no murmurs Extremities Lower extremity: Yes normal to inspection GI Inspection: normal to inspection Palpation: Yes soft and Yes no hepatosplenomegaly Uterus Location (Fundal Height): 35 Presentation: vertex Estimated Weight (lbs): 6 Objective Labs Result Diagrams: 07/03/22 18:45 Labs: Laboratory Results - last 24 hr 07/03/22 18:45 WBC 11.9 H RBC 1.77 L Hgb 5.6 L* Hct 16.4 L* MCV 92.6 MCH 31.6 MCHC 34.1 RDW 14.4 Plt Count 298 Neut % (Auto) 80.2 H Lymph % (Auto) 12.7 L [place] % (Auto) 6.1 Eos % (Auto) 0.5 L Baso % (Auto) 0.5 Neut # (Auto) 9500 H Lymph # (Auto) 1500 [place] # (Auto) 700 Eos # (Auto) 100 Baso # (Auto) 100 Assessment and Plan Assessment and Plan Assessment and Plan narrative: ASSESSMENT 1. Intrauterine , 37+0 wks EGA 2. +GBS PLAN 1. Admit for labor 2. See orders 3. OK for SANDER if requested 4. No augmentation or AROM until at least 2 doses of IV AB have been given
[2022-07-03 19:33] LABS: COVID19 -Nasal RAPID Negative (Negative)
[2022-07-03 19:45] LABS: Add Manual Diff / Slide Review NO; Basophils Absolute Auto 0 /uL (0-100); Basophils Percent Auto 0.6 % (0-2); Eosinophils Absolute Auto 0 /uL (0-450); Eosinophils Percent Auto 0.5 % (2-4); Hematocrit 30.3 % (36-46); Hemoglobin 10.6 g/dL (12.0-16.0); Lymphocytes Absolute Auto 1000 /uL (1100-4500); Mean Corpuscular HGB Conc 34.9 % (30-36); Mean Corpuscular Hemoglobin 31.6 PG (26-34); Mean Corpuscular Volume 90.7 fL (80-100); Monocytes Absolute Auto 400 /uL (0-900); Monocytes Percent Auto 4.8 % (3-14); Neutrophils Absolute Auto 6200 /uL (1500-7000); Neutrophils Percent Auto 81.1 % (50-75); Platelet Count 193 X10^3/uL (150-400); Red Blood Cell Count 3.35 X10^6/uL (4.0-5.2); Red Cell Distribution Width 14.8 % (11.6-14.8); White Blood Cell Count 7.6 X10^3/uL (4.5-11.0)
[2022-07-03 20:00] VITALS: BP 127/90
[2022-07-03] MEDS: CALCIUM CARBONATE 500 MG TAB 1000 MG PO (23:48)
[2022-07-04] MEDS: CEFAZOLIN VIAL 1 GM in SODIUM CHLORIDE 0.9% 100 ML IV (03:07)
--- NOTE | 2022-07-04 07:04 | P.PNOB_ITS ---
Date/Time Date Patient Seen: 07/04/22 Time Patient Seen: 07:04 Pain Control Pain control: tolerating well Pelvic Exam Dilation (cm): 2 Effacement (%): 85 station: -1 Amniotic membrane status: Intact Comments: Cervical exam by RN on presentation incorrect as she is still 85%/1-2 cm/- 1/midposition/ intermediate rather than 4-5 cm as was thought when she presented last evening. Contractions Contractions on admission: irregular Monitor mode: External Contraction intensity: Mild Status status: Category l Heart Rate Baseline: 145 Monitor Accelerations: Present Monitor Decelerations: Absent Monitor Variability: Moderate Assessment and Plan Assessment: other Plan: other Comments: Options discussed and absent any indication for induction at 37+1 weeks EGA, will discharge to home with KEYUR appointment scheduled for 07/08/2022.
== END 2022-07-04 07:15 | disposition home or self-care (01) ==
PROVIDERS: Obstetrics & Gynecology; Admitting Provider Obstetrics & Gynecology; Family Provider Family Medicine; PCP Family Medicine; Referring Provider Obstetrics & Gynecology; Visit Provider Obstetrics & Gynecology
DX: O47.1 False labor at or after 37 completed weeks of gestation (principal); O46.93 Antepartum hemorrhage, unspecified, third trimester; Z3A.37 37 weeks gestation of pregnancy; Z20.822 Contact with and (suspected) exposure to COVID-19; Z03.71 Encounter for suspected problem with amniotic cavity and membrane ruled out
CPT/HCPCS: 36415; 59025; 59050; 81001; 84112; 85025; 86850; 86900; 86901; 87077; 87086; 87147; 87635; C9803; G0378; G0379; J0690

== ENCOUNTER 2022-07-04 18:06 | Observation (INO) | payer OTHER, MEDICAID, SELFPAY | END 2022-07-04 19:00 | disposition home or self-care (01) | PROVIDERS: Admitting Provider Obstetrics & Gynecology; Family Provider Family Medicine; PCP Family Medicine; Referring Provider Obstetrics & Gynecology; Visit Provider Obstetrics & Gynecology | DX: O47.1 False labor at or after 37 completed weeks of gestation (principal); O46.93 Antepartum hemorrhage, unspecified, third trimester; Z3A.37 37 weeks gestation of pregnancy | CPT/HCPCS: 59025; G0378; G0379 ==

== ENCOUNTER 2022-07-17 16:25 | Observation (INO) | payer OTHER, MEDICAID, SELFPAY ==
--- NOTE | 2022-07-17 18:57 | PM.OBTRLD ---
Visit Information Visit Information Date of evaluation: 07/17/22 Primary OB Provider: Og Moore On-call OB Provider: Jessica Chris Reason for Evaluation: Yes rule out labor Vital Signs Vital Signs: Temperature 36.9? blood pressure 120/61 heart rate 70 PFSH Medical History Chlamydia Depression Patient denies medical problems Positive GBS test Surgical History History of cholecystectomy History of third molar tooth extraction History of tooth extraction Status post tonsillectomy and adenoidectomy Family History Mother Diabetes mellitus Heart disease Myocardial infarction Pacemaker Family/Other Hypothyroid Gout Grandmother Diabetes mellitus Grandmother Seizure disorder Dementia Grandfather Heart disease Grandmother Diabetes mellitus Grandfather Hypertension Hypothyroid Social History marital status: unmarried,living together number of children: 1 household members: significant other, family (parents and grandmother) and children lives independently: Yes housing: house pets and animals: No education level: high school occupational status: unemployed current occupational exposures/hazards: No special anushka needs: No seatbelt use: always water heater temp set < 120 deg: Yes working smoke detector in home: Yes fire extinguisher in home: Yes carbon monox detector in home: Yes firearms in home: Yes firearms unloaded and locked: Yes do you feel safe at home: Yes Smoking Status: Former smoker Tobacco: How many years used: 1 second hand exposure: Yes (s/o vapes, but only outside) alcohol intake: former substance use type: does not use during the past year weight has: remained stable well-balanced diet: daily or most days daily servings fruits/ve-4 caffeine: Yes (Occasionally, aware of 200mg limit) Type(s) of exercise: walking Evaluation Evaluation Baseline heart rate: 120 Variability: Moderate (11-25) monitor accelerations: Present Monitor Decelerations: Absent Contraction Frequency (minutes): 2 Uterine Contraction Intensity: Mild Category of Tracing: Reactive Cervical dilation (cm): 2 Cervical effacement (%): 80 station: -3 Diagnosis, Plan/Disposition Final Diagnosis (1) 39 weeks gestation of : Status: Acute Plan/Disposition Plan: 27 year old at 39 weeks gestation presenting with regular painful contractions. NST reactive, SVE unchanged after one hour of walking and contractions dissipated. Will discharge home. Return as needed, f/u in clinic as scheduled. OB Disposition: home
== END 2022-07-17 19:40 | disposition home or self-care (01) ==
PROVIDERS: Admitting Provider Family Medicine; Family Provider Family Medicine; PCP Family Medicine; Referring Provider Family Medicine; Visit Provider Family Medicine
DX: O47.1 False labor at or after 37 completed weeks of gestation (principal); Z3A.39 39 weeks gestation of pregnancy
CPT/HCPCS: 59025; 59050; G0378; G0379

== ENCOUNTER 2022-07-23 23:12 | Observation (INO) | payer OTHER, MEDICAID, SELFPAY ==
[2022-07-23 23:18] VITALS: BP 112/54
[2022-07-24] MEDS: LACTATED RINGERS 1,000 ML 1000 ML IV (02:00)
[2022-07-24 02:30] LABS: Add Manual Diff / Slide Review NO; Basophils Absolute Auto 0 /uL (0-100); Basophils Percent Auto 0.5 % (0-2); Eosinophils Absolute Auto 100 /uL (0-450); Eosinophils Percent Auto 1.3 % (2-4); Hematocrit 31.4 % (36-46); Hemoglobin 10.6 g/dL (12.0-16.0); Lymphocytes Absolute Auto 2400 /uL (1100-4500); Lymphocytes Percent Auto 25.5 % (25-40); Mean Corpuscular HGB Conc 33.8 % (30-36); Mean Corpuscular Volume 91.9 fL (80-100); Monocytes Absolute Auto 700 /uL (0-900); Monocytes Percent Auto 7.1 % (3-14); Neutrophils Absolute Auto 6100 /uL (1500-7000); Neutrophils Percent Auto 65.6 % (50-75); Platelet Count 215 X10^3/uL (150-400); Red Blood Cell Count 3.42 X10^6/uL (4.0-5.2); Red Cell Distribution Width 14.7 % (11.6-14.8); White Blood Cell Count 9.3 X10^3/uL (4.5-11.0)
[2022-07-24 02:58] LABS: COVID19 -Nasal RAPID Negative (Negative)
--- NOTE | 2022-07-24 04:51 | P.TNLD_ITS ---
Visit Information Visit Information Date of evaluation: 07/24/22 Primary OB Provider: Og Moore On-call OB Provider: Taylor Vieira Reason for Evaluation: Yes rule out labor Comments/Additional reasons for admission: 27 yo presets with uncomfortable contractions. Denies LOF or VB. Feeling good FM. has been uncomplicated Vital Signs Vital Signs: Vital Signs - 8 hr 07/23/22 23:18 Blood Pressure 112/54 L PFSH Medical History Chlamydia Depression Patient denies medical problems Positive GBS test Surgical History History of cholecystectomy History of third molar tooth extraction History of tooth extraction Status post tonsillectomy and adenoidectomy Family History Mother Diabetes mellitus Heart disease Myocardial infarction Pacemaker Family/Other Hypothyroid Gout Grandmother Diabetes mellitus Grandmother Seizure disorder Dementia Grandfather Heart disease Grandmother Diabetes mellitus Grandfather Hypertension Hypothyroid Social History marital status: unmarried,living together number of children: 1 household members: significant other, family (parents and grandmother) and children lives independently: Yes housing: house pets and animals: No education level: high school occupational status: unemployed current occupational exposures/hazards: No special anushka needs: No seatbelt use: always water heater temp set < 120 deg: Yes working smoke detector in home: Yes fire extinguisher in home: Yes carbon monox detector in home: Yes firearms in home: Yes firearms unloaded and locked: Yes do you feel safe at home: Yes Smoking Status: Never smoker Tobacco: How many years used: 1 second hand exposure: Yes (s/o vapes, but only outside) alcohol intake: former substance use type: does not use during the past year weight has: remained stable well-balanced diet: daily or most days daily servings fruits/ve-4 caffeine: Yes (Occasionally, aware of 200mg limit) Type(s) of exercise: walking Exam Vital Signs (past 8 hours): - 07/23/22 23:18 Blood Pressure 112/54 L Objective Labs Result Diagrams: 07/24/22 02:00 Labs: Laboratory Results - last 24 hr 07/24/22 07/24/22 07/24/22 02:00 02:00 02:33 WBC 9.3 RBC 3.42 L Hgb 10.6 L Hct 31.4 L MCV 91.9 MCH 31.0 MCHC 33.8 RDW 14.7 Plt Count 215 Neut % (Auto) 65.6 Lymph % (Auto) 25.5 [place] % (Auto) 7.1 Eos % (Auto) 1.3 L Baso % (Auto) 0.5 Neut # (Auto) 6100 Lymph # (Auto) 2400 [place] # (Auto) 700 Eos # (Auto) 100 Baso # (Auto) 0 SARS-CoV-2 (PCR) Negative Blood Type A Positive Antibody Screen Negative Evaluation Evaluation Baseline heart rate: 110 Variability: Moderate (11-25) monitor accelerations: Present Monitor Decelerations: Absent Contraction Frequency (minutes): 5 Uterine Contraction Intensity: Mild Category of Tracing: Reactive Status: Category l Cervical effacement (%): 50 station: -3 Comments: initial cervical examination 2/80% by RN, same as in office. After lying supine for hours, repeat exam by me 2/50% effacement Diagnosis, Plan/Disposition Plan/Disposition Plan: 27 yo female now at EGA 40wk0d presented reporting regular uncomfortable contractions. Contractions difficult to trace but appeared fairly frequent initially every few minutes. Patient appeared uncomfortable every few minutes. After 2 hours no cervical change. On repeat evaluation of EFM however at 2:00 a.m., heart rate baseline had been variable, then decreased significantly to 100-110. unclear whether she was having decelerations at that time versus drop in baseline with accelerations. IV placed and routine ad mission labs drawn. Patient placed in left lateral position. With observation with sometime, became clear that heart rate baseline was 100-110 with accelerations and no decelerations. She was monitored for extended time with heart rate baseline now remaining 100-110 with accelerations, reactive NST and category 1 EFM. Cervix was rechecked and she had no cervical change, no signs of labor. [place] was not picking up any regular contractions though she reported some regular cramping. -Reviewed no signs of labor Since no cervical change after extended monitoring. -With significant variable heart rate baseline and large accelerations, unclear initially regarding heart rate pattern category but with extended monitoring appears clear that EFM shows a category 1 heart rate tracing, with babies routine baseline normal variation 100s to 110. -Discharge home to await labor. Labor precautions reviewed. Keep routine appointment today later in the office OB Disposition: home
[2022-07-24 05:15] VITALS: BP 112/54
== END 2022-07-24 04:50 | disposition home or self-care (01) ==
LOC: LABOR 23:15
PROVIDERS: Admitting Provider Obstetrics & Gynecology; Family Provider Family Medicine; PCP Family Medicine; Referring Provider Obstetrics & Gynecology; Visit Provider Obstetrics & Gynecology
DX: O47.1 False labor at or after 37 completed weeks of gestation (principal); Z3A.40 40 weeks gestation of pregnancy; Z20.822 Contact with and (suspected) exposure to COVID-19
CPT/HCPCS: 59025; 59050; 85025; 86850; 86900; 86901; 87635; 96360; C9803; G0378; G0379

== ENCOUNTER 2022-07-26 20:56 | Outpatient (CLI) | payer OTHER, MEDICAID, SELFPAY ==
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
== END 2022-07-26 21:56 | disposition home or self-care (01) ==
LOC: LABOR 21:00 → OB 07-30 12:51
PROVIDERS: Family Provider Family Medicine; PCP Family Medicine; Referring Provider Family Medicine; Visit Provider Family Medicine
DX: O26.893 Other specified pregnancy related conditions, third trimester (principal); V89.2XXA Person injured in unspecified motor-vehicle accident, traffic, initial encounter; Z3A.40 40 weeks gestation of pregnancy
CPT/HCPCS: 59025; G0378; G0379

== ENCOUNTER 2022-08-01 07:01 | Inpatient (IN) | payer OTHER, MEDICAID, SELFPAY ==
--- NOTE | 2022-08-01 07:18 | P.HPOB_ITS ---
OB HPI Date/Time Date of admission: 08/01/22 Date Patient Seen: 08/01/22 Time Patient Seen: 08:30 History of Present Condition Chief complaint: IUP, 41+1 wks EGA, +GBS, admitted for induction : 5 Para: 1 Estimated Date of Delivery: 07/24/22 Estimated Gestational Age (weeks): 41+1 Narrative: Constanza Tran is a 27 year old admitted now at 41+1 weeks EGA for induction. PNC has been notable for hyperemesis into the mid-second trimester, elevated T4 on a single determination. and SGA on early US which has resolved with most recent US at [facility] on 07/01/2022 showing EFW at the 33rd %'tile and STEVEN of 9.7 cm.. GBS is positive. Indications Indication for induction OB: post dates History of Present care: good care Dating criteria: LMP confirmed by 1st trimester US Ultrasounds: normal 1st trimester US, normal mid trimester US and abnormal US findings (SGA, resolved) Obstetrical complications: none Medical complications: none Preadmission Labs Blood type: A (+) positive -: Antibody screen: negative, GBS status: positive, HBsAG: negative, HIV: negative and RPR/VDLR: negative -: Chlamydia screen: not detected and Gonorrhea screen: not detected -: Rubella: not immune and Varicella: immune HCT: 31.4 HCAB: negative PAP: Normal Quad screen: Normal 1 hr GTT: 99 Prior (ies) History: x 1 Evaluation Evaluation Baseline heart rate: 125 Variability: Moderate (11-25) monitor accelerations: Present Monitor Decelerations: Absent Category of Tracing: Reactive Dilation (cm): 2 Effacement (%): 85 Dilation: 1-2 cm Effacement: >/=80% station: -2 Position of cervix: posterior Consistency: medium Zaldivar score: 6 PFSH Medical History Chlamydia Depression Patient denies medical problems Positive GBS test Surgical History History of cholecystectomy History of third molar tooth extraction History of tooth extraction Status post tonsillectomy and adenoidectomy Family History Mother Diabetes mellitus Heart disease Myocardial infarction Pacemaker Family/Other Hypothyroid Gout Grandmother Diabetes mellitus Grandmother Seizure disorder Dementia Grandfather Heart disease Grandmother Diabetes mellitus Grandfather Hypertension Hypothyroid Social History marital status: unmarried,living together number of children: 1 household members: significant other, family (parents and grandmother) and children lives independently: Yes housing: house pets and animals: No education level: high school occupational status: unemployed current occupational exposures/hazards: No special anushka needs: No seatbelt use: always water heater temp set < 120 deg: Yes working smoke detector in home: Yes fire extinguisher in home: Yes carbon monox detector in home: Yes firearms in home: Yes firearms unloaded and locked: Yes do you feel safe at home: Yes Smoking Status: Never smoker Tobacco: How many years used: 1 second hand exposure: Yes (s/o vapes, but only outside) alcohol intake: former substance use type: does not use during the past year weight has: remained stable well-balanced diet: daily or most days daily servings fruits/ve-4 caffeine: Yes (Occasionally, aware of 200mg limit) Type(s) of exercise: walking Meds Home Medications and Allergies Home Medications Medication Instructions Recorded Confirmed Type prenat.vits,noy,dwy-iyxq-fejjd 1 tab PO DAILY 12/27/21 07/24/22 History Allergies Allergy/AdvReac Type Severity Reaction Status Date / Time amoxicillin [AMOXICILLIN] Allergy Unknown HIVES/VOMIT Verified 07/24/22 13:26 ING azithromycin [AZITHROMYCIN] Allergy Unknown Hives and Verified 07/24/22 13:26 vomiting latex [LATEX] Allergy Unknown Verified 07/24/22 13:26 Penicillins [PENICILLINS] Allergy Unknown HIVES Verified 07/24/22 13:26 Review of Systems Review of Systems Narrative: Problem-specific ROS positives included in HPI OB Exam HENMT Head: normal to inspection, normocephalic and atraumatic Eyes General: appearance normal, both eyes and all related structures Resp Effort & Inspection: normal respiratory effort and able to speak in complete sentences Auscultation: clear to auscultation bilaterally Cardio Rate: regular rate Rhythm: regular rhythm Heart Sounds: S1 normal, S2 normal and no murmurs Extremities Lower extremity: Yes normal to inspection GI Inspection: normal to inspection Palpation: Yes soft and Yes no hepatosplenomegaly Uterus Location (Fundal Height): 36 Presentation: vertex Estimated Weight (lbs): 7 Objective Labs Result Diagrams: 08/01/22 07:11 Assessment and Plan Assessment and Plan Assessment and Plan narrative: ASSESSMENT 1. Intrauterine , 41+1 weeks EGA, admitted for induction 2. GBS + PLAN 1. Admit 2. Will initiate ripening w/ PO cytotec x 1 dose then start pitocin augmentation after 4 hrs. or when contractions begin to subside. 3. GBS prophylaxis w/ Cephalosporin as she is PCN allergic. 4. See orders Time Spent with Patient Total time spent with greater than 50% in coordination of care (as documented) at patient's floor/unit and/or counseling patient:: 15-24 minutes
[2022-08-01 07:56] LABS: Add Manual Diff / Slide Review NO; Basophils Absolute Auto 100 /uL (0-100); Basophils Percent Auto 0.9 % (0-2); Eosinophils Absolute Auto 200 /uL (0-450); Eosinophils Percent Auto 1.6 % (2-4); Hemoglobin 11.4 g/dL (12.0-16.0); Lymphocytes Absolute Auto 2100 /uL (1100-4500); Lymphocytes Percent Auto 21.3 % (25-40); Mean Corpuscular HGB Conc 34.6 % (30-36); Mean Corpuscular Hemoglobin 31.8 PG (26-34); Mean Corpuscular Volume 91.8 fL (80-100); Monocytes Absolute Auto 500 /uL (0-900); Monocytes Percent Auto 5.1 % (3-14); Neutrophils Absolute Auto 7000 /uL (1500-7000); Neutrophils Percent Auto 71.1 % (50-75); Platelet Count 238 X10^3/uL (150-400); Red Cell Distribution Width 14.9 % (11.6-14.8); White Blood Cell Count 9.9 X10^3/uL (4.5-11.0)
[2022-08-01 08:21] VITALS: BP 118/67
[2022-08-01 08:29] LABS: COVID19 -Nasal RAPID Negative (Negative)
[2022-08-01] MEDS: CEFAZOLIN 2 GM/100 ML PREMIX 100 ML IV (08:44)
[2022-08-01] MEDS: miSOPROStoL 100 MCG TABLET 50 MCG PO (08:45)
[2022-08-01] MEDS: LACTATED RINGERS 1,000 ML 100 ML IV (08:45)
[2022-08-01] MEDS: CALCIUM CARBONATE 500 MG TAB 1000 MG PO (10:14)
[2022-08-01] MEDS: OXYTOCIN PREMIX 30 UNIT/500 ML PLAST..BAG IV (12:52)
--- NOTE | 2022-08-01 13:22 | P.PNOB_ITS ---
Date/Time Date Patient Seen: 08/01/22 Time Patient Seen: 13:22 Pain Control Pain control: tolerating well Pelvic Exam Dilation (cm): 2 Effacement (%): 85 station: -2 Amniotic membrane status: Intact Contractions Monitor mode: External Pitocin rate (mU/min): 6 Contraction frequency (min): 3 Contraction duration (min): 1 Contraction pattern: Regular Contraction phase: Resting Contraction intensity: Moderate Status status: Category l Heart Rate Baseline: 120 Monitor Accelerations: Present Monitor Decelerations: Absent Monitor Variability: Moderate Assessment and Plan Assessment: induction ongoing Comments: Pitocin augmentation initiated at 1245 PM. Well tolerated thus far but no signi ficant cervical change. Will reassess later this afternoon and AROM if feasible following her 2nd dose of IV AB's.
[2022-08-01] MEDS: CEFAZOLIN VIAL 1 GM in SODIUM CHLORIDE 0.9% 100 ML IV (16:59)
--- NOTE | 2022-08-01 17:06 | PM.OBPNLAB ---
Date/Time Date Patient Seen: 08/01/22 Time Patient Seen: 17:06 Pain Control Pain control: tolerating well Pelvic Exam Dilation (cm): 3 Effacement (%): 90 station: -1 Amniotic membrane status: Ruptured (AROM, clear fluid, 1702) Contractions Monitor mode: External Pitocin rate (mU/min): 8 Contraction frequency (min): 3 Contraction duration (min): 1 Contraction pattern: Regular Contraction phase: Resting Contraction intensity: Moderate Status status: Category l Heart Rate Baseline: 120 Monitor Accelerations: Absent Monitor Decelerations: Absent Monitor Variability: Moderate Assessment and Plan Assessment: induction ongoing Plan: continuous present management Comments: OK for SANDER. Call coverage transferred to Dr. Sabrina Gay by [id number] handoff. Patient aware.
[2022-08-01] MEDS: fentaNYL 100 MCG/2 ML INJ 50 MCG IV (18:28)
--- NOTE | 2022-08-01 19:44 | PM.OBPRVD ---
Labor & Delivery Delivery date: 08/01/22 Intrapartal Events: None Cervical ripening method: per misoprostal protocol Induction method: per pitocin protocol Delivery augmentation: rupture of membranes Delivery monitor: external FHT and external uterine Route of delivery: L&D Laceration Description: None Estimated blood loss (mL): 100 Anesthesia Type: None Narrative: 27 yo G5 now P2 admitted for postdates induction. Single dose cytotec. Two doses Ancef for +GBS. Pitocin up to 10mU/min. AROM (clear) at 3 cm. Rapid active phase and second stage. Delivered vigorous female OA with nuchal arm over intact perineum. Baby placed on mother's abdomen for drying and stimulation. Cord clamped after intentional delay - FOB cut. Cord blood collected. Apgars 9/9. Intact placental with 3VC delivered spontaneously. EBL 100 cc. Parents happy to see Radha Estes. Plan for aftercare: Routine care
--- NOTE | 2022-08-02 09:50 | P.DS_ITS ---
History of Present Illness History of Present Illness Date Patient Seen: 08/02/22 Time Patient Seen: 09:51 Date of Onset of Symptoms: 08/01/22 Chief complaint: IUP, 41+1 wks EGA, +GBS, admitted for induction Narrative: G2 now P2 admitted for post dates. One dose cytotec and pitocin up to 10 mU/min. Two doses Ancef. Rapid progress after AROM. without issues. Discharge Providers Provider Date of admission: 08/01/22 07:01 Discharge Date: 08/02/22 Primary care physician: Jessica Chris DO Consults: 08/02/22 20:10 Consult to Vascular Radiologist Routine Comment: Discharge provider: Antonia Gay MD Summary Hospital Course Discharge Diagnosis: s/p Hospital Course: Induction - single dose cytotec and pitocin up to 10 mU/min 2 dose ancef for GBS prophylaxis Minimal bleeding / normal pp course AF/VSS, FF/LL, nursing independently. Desires early discharge. Status at Discharge Cognitive/behavioral status at discharge: oriented Functional status at discharge: independent ambulation Overall status at discharge: patient is back to baseline Time Spent with Patient Time spent: Less than 30 minutes Exam Vital Signs (past 8 hours): 98.1, 76, 100/56 Narrative Exam Narrative: FF/ nontender Const General: cooperative Psych Affect: normal affect Objective Labs Result Diagrams: 08/01/22 07:11 [facility] Medical History Chlamydia Depression Patient denies medical problems Positive GBS test Surgical History History of cholecystectomy History of third molar tooth extraction History of tooth extraction Status post tonsillectomy and adenoidectomy Family History Mother Diabetes mellitus Heart disease Myocardial infarction Pacemaker Family/Other Hypothyroid Gout Grandmother Diabetes mellitus Grandmother Seizure disorder Dementia Grandfather Heart disease Grandmother Diabetes mellitus Grandfather Hypertension Hypothyroid Social History marital status: unmarried,living together number of children: 1 household members: significant other, family (parents and grandmother) and children lives independently: Yes housing: house pets and animals: No education level: high school occupational status: unemployed current occupational exposures/hazards: No special anushka needs: No seatbelt use: always water heater temp set < 120 deg: Yes working smoke detector in home: Yes fire extinguisher in home: Yes carbon monox detector in home: Yes firearms in home: Yes firearms unloaded and locked: Yes do you feel safe at home: Yes Smoking Status: Never smoker Tobacco: How many years used: 1 second hand exposure: Yes (s/o vapes, but only outside) alcohol intake: former substance use type: does not use during the past year weight has: remained stable well-balanced diet: daily or most days daily servings fruits/ve-4 caffeine: Yes (Occasionally, aware of 200mg limit) Type(s) of exercise: walking Discharge Assessment & Plan Assessment and Plan Assessment: Stable (). Experienced mom. Nursing well. Desires early DC Plan of Treatment: DC home today Discharge Plan Discharge Plan Patient Disposition: Home Provider Discharge Comment: desires early d/c s/p 08/01, about 2000 F/U with Dr. Moore in six weeks Discharge orders & Medications Prescriptions: Continued prenat.vits,noy,mue-bqdb-xfydu Tablet 1 tab PO DAILY Follow up/Referrals: Antonia Gay MD [Physician] - Jessica Chris DO [Primary Care Provider] - Og Moore MD [Physician] - 6 Weeks (Please call Dr. Moore's office on Friday 08/04 to schedule a 6-week visit. [phone]) Diet/Activity/Treatments Diet: Diet as Tolerated Activity: nothing in vagina for six weeks Skin/Wound/Dressing Care Report to your healthcare provider any signs of infection, such as:: chills, fever Visit Report/Discharge Packet Stand Alone Forms: Discharge: Care, Patient Portal/API, Stroke Signs & Symptoms Discharge Data Primary Care Provider: Jessica Chris
[2022-08-02 14:34] VITALS: BP 114/71; PULSE 73; RESP 19; TEMP 36.7
== END 2022-08-02 15:25 | disposition home or self-care (01) | DRG 560 ==
PROVIDERS: Admitting Provider Obstetrics & Gynecology; Family Provider Family Medicine; PCP Family Medicine; Referring Provider Obstetrics & Gynecology; Visit Provider Obstetrics & Gynecology
DX: O48.0 Post-term pregnancy (principal); Z3A.41 41 weeks gestation of pregnancy; Z37.0 Single live birth; O99.824 Streptococcus B carrier state complicating childbirth; Z20.822 Contact with and (suspected) exposure to COVID-19
CPT/HCPCS: 36415; 59050; 59200; 59409; 85025; 86850; 86900; 86901; 87635; C9803; G0379; J0690; J2590; J3010

== ENCOUNTER → 2023-04-12 12:28 | Outpatient (CLI) | payer OTHER, MEDICAID, SELFPAY | PROVIDERS: Family Provider Family Medicine; PCP Family Medicine; Visit Provider Physician Assistant | DX: J02.9 Acute pharyngitis, unspecified (principal) | CPT/HCPCS: 87070; 87880 ==

== ENCOUNTER → 2023-07-22 14:30 | Outpatient (CLI) | payer OTHER, MEDICAID, SELFPAY | PROVIDERS: Family Provider Family Medicine; PCP Student in an Organized Health Care Education/Training Program; Visit Provider Family Medicine | DX: N89.8 Other specified noninflammatory disorders of vagina (principal); R07.9 Chest pain, unspecified | CPT/HCPCS: 81025 ==

== ENCOUNTER → 2023-12-17 16:33 | Outpatient (CLI) | payer OTHER, MEDICAID, SELFPAY ==
[2023-12-17 17:25] LABS: Influenza A - CEPHEID Flu A NEGATIVE (NEGATIVE); Influenza B - CEPHEID Flu B NEGATIVE (NEGATIVE); Respiratory Syncytial Virus Negative (Negative)
[2023-12-17 17:32] LABS: COVID-19 CEPHEID 4-PLEX PCR Negative (Negative)
== END ==
PROVIDERS: Family Provider Family Medicine; PCP Family Medicine; Visit Provider Physician Assistant Surgical
DX: R05.1 Acute cough (principal); R50.9 Fever, unspecified
CPT/HCPCS: 0241U

== ENCOUNTER → 2023-12-17 16:59 | Outpatient (CLI) | payer OTHER, MEDICAID, SELFPAY ==
--- NOTE | 2023-12-17 17:00 | DI.RAD.S_ITS ---
PROCEDURE: XR CHEST 2V INDICATIONS: Cough, chest heaviness with cough TECHNIQUE: 2 views of the chest were acquired. COMPARISON: [facility], , CHEST 2 VIEW, 06/12/2011, 9:48. FINDINGS: Surgical changes and devices: None. Lungs and pleura: Lungs are clear. No pleural effusions or pneumothorax. Mediastinum: Mediastinal contours are normal. Heart size is normal. Bones and chest wall: No suspicious bony abnormalities. Soft tissues appear unremarkable. IMPRESSION: No acute cardiopulmonary pathology. Dictated by: Cory Combs M.D. on 12/17/2023 at 17:20 Approved by: Cory Combs M.D. on 12/17/2023 at 17:20
== END ==
PROVIDERS: Family Provider Family Medicine; PCP Family Medicine; Referring Provider Physician Assistant Surgical; Visit Provider Physician Assistant Surgical
DX: R07.89 Other chest pain (principal); R05.1 Acute cough; R50.9 Fever, unspecified
CPT/HCPCS: 0241U; 71046

== ENCOUNTER 2024-05-26 10:42 | Emergency (ER) | payer OTHER, MEDICAID, SELFPAY ==
[2024-05-26 10:52] VITALS: BP 117/65; PULSE 80; RESP 18; TEMP 36.5; O2SAT 99; BMI 42.0
--- NOTE | 2024-05-26 10:58 | DI.RAD.S_ITS ---
PROCEDURE: XR FOREARM LT 2V INDICATIONS: Fall backward on steps pain humeral area to wrist TECHNIQUE: 2 views of the forearm were acquired. COMPARISON: None. FINDINGS: Bones: No fractures or dislocations. No suspicious bony lesions. Soft tissues: No suspicious soft tissue calcifications or masses. IMPRESSION: No acute bony abnormality. Dictated by: Jose Serrato M.D. on 05/26/2024 at 11:18 Approved by: Jose Serrato M.D. on 05/26/2024 at 11:19
--- NOTE | 2024-05-26 10:58 | DI.RAD.S_ITS ---
PROCEDURE: XR HUMERUS LT 2V INDICATIONS: Fall backward on steps pain humeral area to wrist TECHNIQUE: 2 views of the humerus were acquired. COMPARISON: None. FINDINGS: Bones: No fractures or dislocations. No suspicious bony lesions. Soft tissues: No suspicious soft tissue calcifications. IMPRESSION: No acute bony abnormality. Dictated by: Jose Serrato M.D. on 05/26/2024 at 11:20 Approved by: Jose Serrato M.D. on 05/26/2024 at 11:21
--- NOTE | 2024-05-26 11:44 | ED.FALL ---
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 She describes this stairs as very steep, slippery and the bottom stairs with pieces missing. She is fallen down the stairs before. She adamantly denies any abuse, pushing or other concerns for non accidental trauma. Today she complains of left arm pain from the fingertips up to the shoulder. She is able to move all the joints of the left arm there was no obvious contusions, abrasions or bruising at this time. She denies any additional injuries. Related Data Previous Rx's Medication Instructions Recorded ketoconazole 2 % shampoo 1 applic topical 3XW #120 mL 08/10/23 methylprednisolone 4 mg tablets in See Rx Instructions PO PER PKG DIR 03/26/24 a dose pack (Medrol (Chavez)) Contact dermatitis #21 ea triamcinolone acetonide 0.1 % 1 applic topical BID #30 grams 03/26/24 topical cream Allergies Allergy/AdvReac Type Severity Reaction Status Date / Time acetaminophen [From Tylenol] Allergy Intermediate Vomiting Verified 03/26/24 12:17 amoxicillin [AMOXICILLIN] Allergy Unknown HIVES/VOMIT Verified 03/26/24 12:17 ING azithromycin [AZITHROMYCIN] Allergy Unknown Hives and Verified 03/26/24 12:17 vomiting latex [LATEX] Allergy Unknown Verified 03/26/24 12:17 Penicillins [PENICILLINS] Allergy Unknown HIVES Verified 03/26/24 12:17 iodine AdvReac Mild Skin Rash Verified 03/26/24 12:17 Review of Systems Review of Systems Narrative: Pertinent positive and negative findings as per HPI Patient History Medical History Severe episode of recurrent major depressive disorder, without psychotic features (06/27/16) Depression Surgical History History of tooth extraction History of cholecystectomy History of third molar tooth extraction Status post tonsillectomy and adenoidectomy Family History Mother Diabetes mellitus Heart disease Myocardial infarction Pacemaker Family/Other Hypothyroid Gout Grandmother Diabetes mellitus Grandmother Seizure disorder Dementia Grandfather Heart disease Grandmother Diabetes mellitus Grandfather Hypertension Hypothyroid Social History marital status: unmarried,living together details: lives with mother number of children: 2 household members: significant other, family (parents and grandmother) and children lives independently: Yes housing: house pets and animals: No education level: high school occupational status: unemployed current occupational exposures/hazards: No special anushka needs: No seatbelt use: always water heater temp set < 120 deg: Yes working smoke detector in home: Yes fire extinguisher in home: Yes carbon monox detector in home: Yes firearms in home: Yes firearms unloaded and locked: Yes do you feel safe at home: Yes Smoking Status: Former smoker Tobacco: How many years used: 1 second hand exposure: Yes (s/o vapes, but only outside) alcohol intake: former substance use type: does not use during the past year weight has: remained stable well-balanced diet: daily or most days daily servings fruits/ve-4 caffeine: Yes (Occasionally, aware of 200mg limit) Type(s) of exercise: walking Smoking Status: Former smoker tobacco type: vaping alcohol intake frequency: holidays/special occasions only Substance Use Type: does not use Exam Initial Vital Signs Initial Vital Signs: Vital Signs Temperature 97.7 F 05/26/24 10:52 Pulse Rate 80 05/26/24 10:52 Respiratory Rate 18 05/26/24 10:52 Blood Pressure 117/65 05/26/24 10:52 Pulse Oximetry 99 05/26/24 10:52 Oxygen Delivery Method Room Air 05/26/24 10:52 General: Alert appropriate in no acute distress Respiratory: Able to speak in full sentences, no obvious respiratory distress Skin: No obvious rashes, warm and dry Neurologic: Grossly intact no obvious asymmetries or abnormalities Psych: appropriate insight and affect, cooperative Extremities: Left upper extremity as full range of motion at the shoulder elbow wrist and with contour grinder. No obvious swelling, deformity, bruises or abrasions. No complaints of pain with other extremities Course Orders Ordered: ED Orders 05/26/24 10:58 XR forearm LT 2V Stat XR humerus LT 2V Stat Vital Signs Vital signs: Vital Signs - 8 hr 05/26/24 10:52 Temperature 97.7 F Pulse Rate 80 Respiratory Rate 18 Blood Pressure 117/65 Pulse Oximetry 99 Oxygen Delivery Method Room Air MDM - Fall MDM Narrative Medical decision making narrative: 29-year-old woman who slipped and fell on steps at home, these are steps that are steep, slippery on which she has fallen previously. Complaining of left arm pain. X-rays show no evidence of fractures to upper or lower arm nor joint abnormalities at the shoulder elbow or wrist. She will be given a sling for comfort to use as needed. She declined any additional pain medication. There is no other signs of injury. She is hoping that this incident may help in getting the stairs repaired so that she does not continue to fall. Currently there is no indication for additional imaging further workup or hospitalization, questions are answered and she is safe for discharge Discharge Plan Departure Patient Disposition: Home Clinical Impression: Arm pain, left Fall down stairs Qualifiers: Encounter type: initial encounter Qualified Code(s): W10.8XXA - Fall (on) (from) other stairs and steps, initial encounter Activity Restrictions/Additional Instructions: Thank you for coming in today After reviewing your x-rays and your physical exam, there is no evidence that you broke anything today. You did not dislocate your shoulder, you do not have fractures in the bones or joints of your left arm. I have given you a sling to use for comfort. Using 400 mg of ibuprofen (2 iahe-vwa-touxnjz pills) and 1 Tylenol every 6 hours as well as ice can be very helpful in controlling pain. I would strongly recommend that you work on getting those stairs fixed so that you do not have any additional episodes of falling down the stairs and actually causing significant injury. Prescriptions: No Action methylprednisolone [Medrol (Chavez)] 4 mg tablets,dose pack See Rx Instructions PO PER PKG DIR Qty: 21 0RF Rx Instructions: PO PER PKG DIR for 6 days triamcinolone acetonide 0.1 % cream 1 applic topical BID Qty: 30 0RF ketoconazole 2 % shampoo 1 applic topical 3XW Qty: 120 1RF Referrals: Jessie Oh MD [Primary Care Provider] - Stand Alone Forms: Patient Portal/API/Survey
== END 2024-05-26 12:06 | disposition home or self-care (01) ==
PROVIDERS: Emergency Provider Emergency Medicine; Family Provider Family Medicine; PCP Family Medicine
DX: M79.602 Pain in left arm (principal); W10.9XXA Fall (on) (from) unspecified stairs and steps, initial encounter
CPT/HCPCS: 73060; 73090; 99281; 99283

== ENCOUNTER 2024-10-10 18:09 | Emergency (ER) | payer OTHER, SELFPAY ==
[2024-10-10] VITALS (8 sets, daily range): BP systolic 102–130; BP diastolic 54–70; PULSE 70–81; RESP 13–19; TEMP 36.7; O2SAT 100; BMI 54.8
--- NOTE | 2024-10-10 18:29 | EKG_ITS ---
[facility] [address] [address] Test Date: 2024-10-10 Pat Name: Constanza Tran Department: [facility] Room: Gender: Female [employer]: LONNY : 1995 Requested By: Order Number: [id number] Reading MD: Rich Birch MD Measurements Intervals [place] Rate: 74 P: 28 RI: 148 QRS: 26 QRSD: 82 T: 32 QT: 390 QTc: 432 Interpretive Statements Normal sinus rhythm with sinus arrhythmia Electronically Signed On 10-11-2024 6:47:06 PDT by Rich Birch MD
--- NOTE | 2024-10-10 18:29 | DI.RAD.S_ITS ---
PROCEDURE: XR CHEST 1V INDICATIONS: chest pain TECHNIQUE: One view of the chest was acquired. COMPARISON: [facility], CR, XR CHEST 2V, 12/17/2023, 17:01. FINDINGS: Surgical changes and devices: None. Lungs and pleura: Lungs are clear. No pleural effusions or pneumothorax. Mediastinum: Mediastinal contours appear normal. Heart size is normal. Bones and chest wall: No suspicious bony lesions. Overlying soft tissues appear unremarkable. IMPRESSION: No acute cardiopulmonary abnormality is seen. Dictated by: Haydee Martinez M.D. on 10/10/2024 at 19:00 Approved by: Haydee Martinez M.D. on 10/10/2024 at 19:08
[2024-10-10 18:45] LABS: Add Manual Diff / Slide Review NO; Basophils Absolute Auto 100 /uL (0-100); Basophils Percent Auto 0.8 % (0-2); Eosinophils Absolute Auto 400 /uL (0-450); Eosinophils Percent Auto 5.3 % (2-4); Hematocrit 39.9 % (36-46); Hemoglobin 13.5 g/dL (12.0-16.0); Lymphocytes Absolute Auto 2300 /uL (1100-4500); Lymphocytes Percent Auto 31.2 % (25-40); Mean Corpuscular HGB Conc 33.8 % (30-36); Mean Corpuscular Hemoglobin 30.6 PG (26-34); Mean Corpuscular Volume 90.7 fL (80-100); Monocytes Absolute Auto 400 /uL (0-900); Monocytes Percent Auto 5.5 % (3-14); Neutrophils Absolute Auto 4300 /uL (1500-7000); Neutrophils Percent Auto 57.2 % (50-75); Platelet Count 290 X10^3/uL (150-400); Red Cell Distribution Width 13.2 % (11.6-14.8); White Blood Cell Count 7.5 X10^3/uL (4.5-11.0)
[2024-10-10 18:54] LABS: Prothrombin Time 10.8 SECONDS (9.4-12.5)
[2024-10-10 18:57] LABS: Alanine Aminotransferase 34 IU/L (<35); Albumin 4.3 g/dL (3.5-5.0); Albumin Globulin Ratio 1.3 (1.0-2.8); Alkaline Phosphatase 54 U/L (38-126); Aspartate Aminotransferase 39 IU/L (14-36); BUN Creatinine Ratio 15.3 (6-22); Bilirubin Total 1.5 mg/dL (0.2-1.3); Blood Urea Nitrogen 11 mg/dL (7-17); Calcium 9.4 mg/dL (8.4-10.2); Carbon Dioxide 23 mmol/L (22-32); Chloride 105 mmol/L (98-107); Creatine Kinase 80 U/L (30-135); Estimated Glomerular Filt Rate > 60 mL/min (>60); Globulin 3.3 g/dL (1.7-4.1); Glucose 115 mg/dL (70-100); HEMOLYSIS 17 (0-50); Lipase 96 U/L (23-300); Magnesium 1.8 mg/dL (1.6-2.3); PTT Partial Thromboplastin Tim 33 SECONDS (25.1-36.5); Sodium 139 mmol/L (137-145); Total Protein 7.6 g/dL (6.3-8.2)
[2024-10-10 19:09] LABS: NT-proBNP (BNP-Adult 18+) < 20 pg/mL (<125); Troponin I < 0.012 ng/mL (0.01-0.034)
--- NOTE | 2024-10-10 19:25 | PC.NURSE ---
Patient here in department for chest pain that first began 7 years ago, worse when she eats food and drinking fluids makes it better. Patient reports that the pain is across my entire chest, and radiates down into her left arm I cant feel the BP cuff right now. Patient reports that she does have acid reflux but this feels different and shes had this chest pain for much longer.
--- NOTE | 2024-10-10 19:26 | ED.CHESTPAIN ---
HPI - Chest Pain General Chief Complaint: Chest Pain Stated Complaint: chest px Time Seen by Provider: 10/10/24 19:26 History of Present Illness HPI narrative: Patient 29-year-old female history of asthma as a child acid reflux presenting today with 2 weeks of ongoing chest pain. Gives varying degrees of constant chest pain sometimes coming and going lasting minutes sometimes radiating down left arm. No significant shortness of breath. Zortman like her pain was so bad yesterday that she threw up. She has no abdominal pain now. No nausea vomiting now. Denies any chance of currently on her menstrual cycle. She tried acid reflux medicine Tylenol and Motrin at home Related Data Previous Rx's Medication Instructions Recorded ketoconazole 2 % shampoo 1 applic topical 3XW #120 mL 08/10/23 triamcinolone acetonide 0.1 % 1 applic topical BID #30 grams 03/26/24 topical cream Allergies Allergy/AdvReac Type Severity Reaction Status Date / Time acetaminophen [From Tylenol] Allergy Intermediate Vomiting Verified 05/30/24 14:04 amoxicillin [AMOXICILLIN] Allergy Unknown HIVES/VOMIT Verified 05/30/24 14:04 ING azithromycin [AZITHROMYCIN] Allergy Unknown Hives and Verified 05/30/24 14:04 vomiting latex [LATEX] Allergy Unknown Verified 05/30/24 14:04 Penicillins [PENICILLINS] Allergy Unknown HIVES Verified 05/30/24 14:04 iodine AdvReac Mild Skin Rash Verified 05/30/24 14:04 Patient History Medical History Severe episode of recurrent major depressive disorder, without psychotic features (06/27/16) Depression Surgical History History of tooth extraction History of cholecystectomy History of third molar tooth extraction Status post tonsillectomy and adenoidectomy Family History Mother Diabetes mellitus Heart disease Myocardial infarction Pacemaker Family/Other Hypothyroid Gout Grandmother Diabetes mellitus Grandmother Seizure disorder Dementia Grandfather Heart disease Grandmother Diabetes mellitus Grandfather Hypertension Hypothyroid Social History marital status: unmarried,living together details: lives with mother number of children: 2 household members: significant other, family (parents and grandmother) and children lives independently: Yes housing: house pets and animals: No education level: high school occupational status: unemployed current occupational exposures/hazards: No special anushka needs: No seatbelt use: always water heater temp set < 120 deg: Yes working smoke detector in home: Yes fire extinguisher in home: Yes carbon monox detector in home: Yes firearms in home: Yes firearms unloaded and locked: Yes do you feel safe at home: Yes Smoking Status: Former smoker Tobacco: How many years used: 1 second hand exposure: Yes (s/o vapes, but only outside) alcohol intake: former substance use type: does not use during the past year weight has: remained stable well-balanced diet: daily or most days daily servings fruits/ve-4 caffeine: Yes (Occasionally, aware of 200mg limit) Type(s) of exercise: walking Smoking Status: Former smoker tobacco type: vaping alcohol intake frequency: holidays/special occasions only Exam Initial Vital Signs Initial Vital Signs: Vital Signs Temperature 98.1 F 10/10/24 18:24 Pulse Rate 73 10/10/24 18:24 Respiratory Rate 18 10/10/24 18:24 Blood Pressure 130/70 10/10/24 18:24 Pulse Oximetry 100 10/10/24 18:24 Oxygen Delivery Method Room Air 10/10/24 18:24 GENERAL: Alert well-appearing 21-year-old. HEENT: Head atraumatic,EOMI, pupils reactive, face symmetric, moist mucous membranes CARDIOVASCULAR: Regular rate and rhythm without murmurs, rubs or gallops. RESPIRATORY: Breath sounds equal bilaterally, no wheezes rales or rhonchi. Speaks in full sentences no wheezing rales or rhonchi ABDOMEN: Soft, nontender. Normoactive bowel sounds all 4 quadrants. No guarding or rebound EXTREMITIES: Normal range of motion, no clubbing or edema. Neurovascularly intact NEUROLOGICAL: Alert and oriented x4.Normal gait and speech. Cranial nerves II through XII grossly intact. SKIN: Warm, dry, no laceration, no petechiae, no rashes or lesions. Scores HEART Score Heart Score history: Slightly Suspicious Heart Score EKG: Normal Heart Score Age: < 45 years old Heart Score risk factors: No known risk factors Heart Score troponin: < or = to normal limit Heart Score Total: 0 PERC Score Age greater than or equal to 50 years: No Heart rate greater than or equal to 100 bpm: No Room Air O2 Sat less than 95%: No Unilateral leg swelling: No Recent trauma or surgery: No Hemoptysis: No Prior PE or DVT: No Hormone Use: No Total PERC Score: 0 Course Orders Ordered: Discontinued Medications Albuterol (Albuterol Hfa Prepack) 1 box MISC DIRECTED ONE Stop: 10/10/24 19:43 Last Admin: 10/10/24 19:51 Dose: 1 box Documented By: KENYA Aspirin (Aspirin 81 Mg Chew Tab) 324 mg PO NOW ONE Stop: 10/10/24 18:30 Last Admin: 10/10/24 19:46 Dose: Not Given Documented By: KENYA Vital Signs Vital signs: Vital Signs - 8 hr 10/10/24 20:00 10/10/24 20:00 10/10/24 20:30 Pulse Rate 74 71 Respiratory Rate 17 19 Blood Pressure 102/59 L Pulse Oximetry 100 100 Oxygen Delivery Method Room Air 10/10/24 20:31 10/10/24 20:31 Pulse Rate 72 Respiratory Rate 18 Blood Pressure 111/59 L Pulse Oximetry 100 Oxygen Delivery Method Room Air MDM - Chest Pain Lab Data 10/10/24 18:35 10/10/24 18:35 Labs: Lab Results 10/10/24 Range/Units 18:35 WBC 7.5 (4.5-11.0) X10^3/uL RBC 4.40 (4.0-5.2) X10^6/uL Hgb 13.5 (12.0-16.0) g/dL Hct 39.9 (36-46) % MCV 90.7 (80-100) fL MCH 30.6 (26-34) PG MCHC 33.8 (30-36) % RDW 13.2 (11.6-14.8) % Plt Count 290 (150-400) X10^3/uL Neut % (Auto) 57.2 (50-75) % Lymph % (Auto) 31.2 (25-40) % Wilkes % (Auto) 5.5 (3-14) % Eos % (Auto) 5.3 H (2-4) % Baso % (Auto) 0.8 (0-2) % Neut # (Auto) 4300 (7069-0665) /uL Lymph # (Auto) 2300 (8912-0110) /uL Wilkes # (Auto) 400 (0-900) /uL Eos # (Auto) 400 (0-450) /uL Baso # (Auto) 100 (0-100) /uL PT 10.8 (9.4-12.5) SECONDS INR 1.0 (0.9-1.3) APTT 33 (25.1-36.5) SECONDS Sodium 139 (137-145) mmol/L Potassium 4.0 (3.4-5.1) mmol/L Chloride 105 (98-107) mmol/L Carbon Dioxide 23 (22-32) mmol/L BUN 11 (7-17) mg/dL Creatinine 0.72 (0.52-1.04) mg/dL Estimated GFR > 60 (>60) mL/min BUN/Creatinine Ratio 15.3 (6-22) Glucose 115 H (70-100) mg/dL Calcium 9.4 (8.4-10.2) mg/dL Magnesium 1.8 (1.6-2.3) mg/dL Total Bilirubin 1.5 H (0.2-1.3) mg/dL AST 39 H (14-36) IU/L ALT 34 (<35) IU/L Alkaline Phosphatase 54 (38-126) U/L Total Creatine Kinase 80 (30-135) U/L Troponin I < 0.012 (0.01-0.034) ng/mL NT-Pro-B Natriuret Pep < 20 (<125) pg/mL Total Protein 7.6 (6.3-8.2) g/dL Albumin 4.3 (3.5-5.0) g/dL Globulin 3.3 (1.7-4.1) g/dL Albumin/Globulin Ratio 1.3 (1.0-2.8) Lipase 96 (23-300) U/L Imaging Data Chest x-ray: Radiologist's Impression: PROCEDURE: XR CHEST 1V INDICATIONS: chest pain TECHNIQUE: One view of the chest was acquired. COMPARISON: [facility], CR, XR CHEST 2V, 12/17/2023, 17:01. FINDINGS: Surgical changes and devices: None. Lungs and pleura: Lungs are clear. No pleural effusions or pneumothorax. Mediastinum: Mediastinal contours appear normal. Heart size is normal. Bones and chest wall: No suspicious bony lesions. Overlying soft tissues appear unremarkable. IMPRESSION: No acute cardiopulmonary abnormality is seen. Dictated by: Haydee Martinez M.D. on 10/10/2024 at 19:00 Approved by: Haydee Martinez M.D. on 10/10/2024 at 19:08 ECG Data Attestation: I personally reviewed and interpreted this ECG as follows: Prior ECG tracings: not available for review Interpretation: Normal sinus rhythm rate 74 HI interval 148 QRS [address] changes Q-wave noted in lead 3 only MDM Narrative Medical decision making narrative: Patient 29-year-old female history of asthma presenting today with ongoing chest discomfort. Lung sounds are clear no wheezing rales rhonchi no conversational dyspnea. EKGs overall reassuring sinus rhythm no ischemia Chest x-ray reviewed no acute cardiopulmonary process pneumonia hemothorax or other Blood work reviewed negative troponin overall reassuring no significant abnormality Heart score 0 Minimal improvement after albuterol she has not tachycardic PERC score 0 At this time unclear what is causing patient's chest discomfort. It maybe acid reflux. She was given albuterol inhaler she does have a remote history of asthma but breath sounds were clear. Discharge Plan Departure Patient Disposition: Home Clinical Impression: Atypical chest pain Instructions: DI for Atypical Chest Pain Activity Restrictions/Additional Instructions: *You have been diagnosed with atypical chest pain *What to do: At this time try using albuterol every 4 hours if it improves your chest and breathing. It has not working then do not use it. May need further tests *Continue to take medications as directed *Follow up with your primary care provider in 2-3 days or call [phone] *Return to ER if you should have increasing chest pain shortness of breath weakness confusion [or] any new, worsening or concerning symptoms Prescriptions: No Action triamcinolone acetonide 0.1 % cream 1 applic topical BID Qty: 30 0RF ketoconazole 2 % shampoo 1 applic topical 3XW Qty: 120 1RF Referrals: Jessie Oh MD [Primary Care Provider] - Stand Alone Forms: Patient Portal/API/Survey
[2024-10-10] MEDS: ALBUTEROL HFA PREPACK 1 BOX MISC (19:51)
== END 2024-10-10 20:36 | disposition home or self-care (01) ==
PROVIDERS: Emergency Provider Emergency Medicine; Family Provider Family Medicine; PCP Family Medicine
DX: R07.89 Other chest pain (principal)
CPT/HCPCS: 36415; 71045; 80053; 82550; 83690; 83735; 83880; 84484; 85025; 85610; 85730; 93005; 93010; 99283; 99284

== ENCOUNTER → 2024-11-01 10:42 | Outpatient (CLI) | payer OTHER, SELFPAY ==
--- NOTE | 2024-11-01 10:43 | DI.US.S_ITS ---
PROCEDURE: US ABDOMEN LIMITED INDICATIONS: Elevated LFT's TECHNIQUE: Real-time focused scanning was performed of the abdomen, with image documentation. COMPARISON: None. FINDINGS: Liver measures 18 cm. Gallbladder is absent. CBD within normal limits at 6 mm. Increased hepatic echogenicity. Pancreatic head partially visualized, unremarkable IMPRESSION: Borderline hepatomegaly and increased hepatic echogenicity, nonspecific findings that is most commonly associated with steatosis. Gallbladder is absent. CBD within normal limits allowing for postsurgical state. Dictated by: Dereje De La Vega M.D. on 11/01/2024 at 16:33 Approved by: Dereje De La Vega M.D. on 11/01/2024 at 16:34
== END ==
PROVIDERS: Family Provider Family Medicine; PCP Family Medicine; Referring Provider Family Medicine; Visit Provider Family Medicine
DX: R79.89 Other specified abnormal findings of blood chemistry (principal); Z90.49 Acquired absence of other specified parts of digestive tract
CPT/HCPCS: 76705

== ENCOUNTER → 2024-11-16 13:32 | Outpatient (CLI) | payer OTHER, SELFPAY ==
--- NOTE | 2024-11-16 13:34 | DI.ECHO.S_ITS ---
[facility] : : [address] : : [place] : : [id number] : : Phone: [phone] Echocardiogram Report + + :Name: SAMMI ZHANG Study Date: 11/16/2024 Height: 61 in : :[facility] ReadingLocation: Weight: 237 lb : : Gender: Female BSA: 2.0 m2 : :: 1995 Age: 29 yrs BP: 103/67 mmHg: :Reason For Study: CHEST PAIN : :Ordering Physician: PEG, : :ERIN Jones Performed By: Kyler Mccullough : :Referring: ERIN RUVALCABA : + + Interpretation Summary 1) Normal left ventricular thickness, size, wall motion, and systolic function (EF 55-60%). 2) Normal right ventricular size and function. 3) No significant valvular abnormalities. 4) No prior Echo available for comparison. Procedure: A two-dimensional transthoracic echocardiogram with color flow and Doppler was performed. The study quality was technically good. There is no prior echocardiogram noted for this patient. The patient was in normal sinus rhythm during the exam. Left Ventricle: The left ventricle is normal in size. There is normal left ventricular wall thickness. There is no ventricular septal defect visualized. The ejection fraction is estimated to be 55-60%. There are no focal wall motion abnormalities. Diastolic parameters suggest probable normal left ventricular diastolic function and normal filling pressures. Right Ventricle: The right ventricle is normal in size and function. Atria: The left atrial size is normal. Right atrial size is normal. There is no Doppler evidence for an interatrial shunt. Mitral Valve: The mitral valve leaflets appear normal. There is no evidence of stenosis, fluttering, or prolapse. There is no mitral regurgitation noted. Aortic Valve: The aortic valve is trileaflet. The aortic valve opens well. There is no aortic valve stenosis. No aortic regurgitation is present. Tricuspid Valve: The tricuspid valve leaflets are thin and pliable. There is a trace or physiologic amount of tricuspid regurgitation. Pulmonic Valve: The pulmonic valve leaflets are thin and pliable; valve motion is normal. There is trace pulmonic regurgitation. Great Vessels: The aortic root is normal size. The dimensions of the ascending aorta are normal. The pulmonary artery is normal size. The inferior vena cava was not visualized. Pericardium/ Pleura There is no pericardial effusion. MMode/2D Measurements & Calculations LVIDd: 5.7 cm LVOT diam: 1.9 cm LVIDs: 3.6 cm Ao root diam: 2.8 cm FS: 37.5 % asc Aorta Diam: 2.6 cm EPSS: 0.76 cm Ao Arch Diam (Prox Trans): 1.4 cm IVSd: 0.75 cm LVPWd: 0.82 cm LV ortega. diameter/BSA (cm/m^2): 2.8 LV sys. diameter/BSA (cm/m^2): 1.8 LA A2 area: 14.7 cm2 RA long axis: 4.5 cm LA A4 area: 16.2 cm2 RA area: 16.4 cm2 LA length (vol): 4.8 cm RA vol: 51.0 ml LA vol: 42.0 ml RA : 25.1 ml/m2 LA vol index: 20.7 ml/m2 RVD1 (basal): 3.4 cm RVD2 (mid): 2.7 cm Doppler Measurements & Calculations Ao V2 max: 125.3 cm/sec LVOT Max Matheus: 93.0 cm/sec Ao V2 mean: 88.2 cm/sec LV V1 max P.5 mmHg Ao max P.3 mmHg LV V1 VTI: 21.1 cm Ao mean P.5 mmHg JOSE(I,D): 2.1 cm2 Ao V2 VTI: 27.2 cm JOSE(V,D): 2.1 cm2 sev ratio: 0.77 JOSE indexed to BSA (cm^2/m^2): 1.1 MV E max matheus: 73.9 cm/sec PA V2 max: 88.3 cm/sec MV A max matheus: 48.3 cm/sec PA V2 mean: 63.8 cm/sec MV E/A: 1.5 PA mean P.8 mmHg Med Peak E' Matheus: 9.9 cm/sec PA pr(Accel): 17.3 mmHg E/E' med: 7.5 Lat Peak E' Matheus: 14.3 cm/sec E/E' lat: 5.2 E/e' average: 6.3 MV dec time: 0.16 sec SV(LVOT): 58.3 ml Reading Physician:03:57 PM
--- NOTE | 2024-11-16 22:58 | DI.NM.S_ITS ---
DATE OF SERVICE: 11/16/2024 EXERCISE TREADMILL STRESS TEST PROCEDURE PERFORMED: Exercise treadmill stress test without imaging. ORDERING PROVIDER: Jessie Oh MD INDICATIONS: The patient is a 29-year-old obese female with atypical chest discomfort. FINDINGS: 1. The patient was able to exercise for only 6 minutes 5 seconds on a standard Tai protocol, suggesting severely reduced exercise capacity, with an ADDY of +40%, achieving 7.0 METS. 2. She had a normal heart rate and blood pressure response to exercise, achieving a maximum heart rate of 165 bpm (86% of her predicted maximum). 3. She had no chest discomfort or other anginal symptoms but had limiting dyspnea. 4. Her resting ECG shows sinus rhythm with normal ST segments. There are no obvious ST-segment shifts or arrhythmias with exercise although marked motion artifact limits the interpretation during stress. Yet, ST segments are normal on the immediate recovery ECG, suggesting the absence of any concerning ECG evidence for ischemia. IMPRESSION: 1. Probable normal exercise treadmill stress test for ischemia. 2. Severely reduced exercise capacity without angina or obvious arrhythmias. Constanza Tran - ADELINA/taz/AY doc#: [id number]/job#: [id number] dd: 11/16/2024 18:03:00 dt: 11/16/2024 21:57:00 DICTATING /COPIES TO: Steven Harden MD; Jessie Oh M.D. COPIES MNE: OSIEL;
== END ==
PROVIDERS: Family Provider Family Medicine; PCP Family Medicine; Referring Provider Family Medicine; Visit Provider Family Medicine
DX: R07.89 Other chest pain (principal)
CPT/HCPCS: 93017; 93306

== ENCOUNTER → 2024-11-23 11:59 | Outpatient (CLI) | payer OTHER, SELFPAY ==
--- NOTE | 2024-11-23 12:00 | DI.US.S_ITS ---
PROCEDURE: US PELVIC COMPLETE INDICATIONS: AUB TECHNIQUE: Real-time scanning was performed of the pelvic organs, with image documentation. Additional endovaginal scanning was necessary due to incomplete visualization of the adnexal and endometrial structures by transabdominal scanning. COMPARISON: [facility], , US PELVIC COMPLETE, 08/10/2018, 10:59. FINDINGS: Uterus: Uterus is anteverted and normal in size at 7.5 x 4.8 x 3.9 cm. The myometrium is heterogenous. The endometrium measures 2 mm in combined thickness. Ovaries: The right ovary measures 2.6 x 2.0 x 2.4 cm, with a calculated ovarian volume of 6.5 cc. The left ovary measures 3.3 x 2.6 x 1.8 cm, with a calculated ovarian volume of 7.9 cc. The ovaries have a normal sonographic appearance. Less than 12 follicles can be seen in each ovary. No adnexal masses are seen. Other: No pathologic free abdominal or pelvic fluid. IMPRESSION: No acute sonographic abnormality of the uterus or ovaries. We strive to produce accurate, complete, and clear reports of imaging services. To assist us in improving patient care, this report was composed using standard report templates and voice recognition software. Therefore, it may contain abnormal punctuation, insertions and/or omissions. Occasional wrong-word or sound-alike substitutions may occur. Though we review the report and make efforts to correct it, we do recommend that the report be read carefully in proper context to recognize any text inaccuracies. Dictated by: Handy Dunne M.D. on 11/23/2024 at 16:53 Approved by: Handy Dunne M.D. on 11/23/2024 at 16:55
== END ==
PROVIDERS: Family Provider Family Medicine; PCP Family Medicine; Referring Provider Obstetrics & Gynecology; Visit Provider Obstetrics & Gynecology
DX: N93.9 Abnormal uterine and vaginal bleeding, unspecified (principal)
CPT/HCPCS: 76830; 76856

== ENCOUNTER 2025-02-22 12:23 | Emergency (ER) | payer OTHER, SELFPAY ==
[2025-02-22 13:03] VITALS: BP 115/63; PULSE 99; RESP 17; TEMP 36.6; O2SAT 98; BMI 44.8
--- NOTE | 2025-02-22 13:09 | DI.RAD.S_ITS ---
PROCEDURE: XR ANKLE RT MIN 3V INDICATIONS: fall TECHNIQUE: 3 views of the ankle were acquired. COMPARISON: None. FINDINGS: Bones: No fractures or dislocations. Ankle mortise is normally aligned. No suspicious bony lesions. Soft tissues: No tibiotalar joint effusion. Achilles tendon appears normal. IMPRESSION: No acute ankle fracture or dislocation. Dictated by: Cory Cobms M.D. on 02/22/2025 at 13:58 Approved by: Cory Combs M.D. on 02/22/2025 at 13:59
--- NOTE | 2025-02-22 13:09 | DI.RAD.S_ITS ---
PROCEDURE: XR KNEE RT 3V INDICATIONS: fall TECHNIQUE: 3 views of the knee were acquired. COMPARISON: [facility], CR, XR KNEE LT 3V, 12/02/2021, 19:14. FINDINGS: Bones: No fractures or dislocations. No patellar subluxation. No suspicious bony lesions. Soft tissues: No joint effusion. No suspicious soft tissue calcifications. IMPRESSION: No acute right knee fracture or dislocation. No significant joint effusion. Dictated by: Cory Combs M.D. on 02/22/2025 at 13:59 Approved by: Cory Combs M.D. on 02/22/2025 at 13:59
--- NOTE | 2025-02-22 13:10 | DI.RAD.S_ITS ---
PROCEDURE: XR FOOT RT MIN 3V INDICATIONS: fall TECHNIQUE: 3 views of the foot were acquired. COMPARISON: [facility], CR, XR FOOT LT MIN 3V, 12/02/2021, 19:14. FINDINGS: Bones: No fractures or dislocations. No suspicious bony lesions. Soft tissues: No tibiotalar joint effusion. Achilles tendon appears normal. IMPRESSION: No acute right foot fracture or dislocation. No gross soft tissue abnormalities. Dictated by: Cory Combs M.D. on 02/22/2025 at 13:58 Approved by: Cory Combs M.D. on 02/22/2025 at 13:58
== END 2025-02-22 15:47 | disposition left against medical advice (07) ==
PROVIDERS: Emergency Provider Emergency Medicine; PCP Family Medicine
DX: S99.911A Unspecified injury of right ankle, initial encounter (principal); X58.XXXA Exposure to other specified factors, initial encounter
CPT/HCPCS: 73562; 73610; 73630; 99281